=== PATIENT | male | born 1985 | race Caucasian/White ===

== ENCOUNTER 2016-06-22 20:36 | Inpatient (IN) | payer OTHER ==
[2016-06-22 20:57] VITALS: BMI 25.2
--- NOTE | 2016-06-22 21:38 | HP ---
COWS - Scale Resting Pulse: 1= [place] 81-100 Sweatin= Chills/Flushing Restless Observation: 1= Difficult to Sit Still Pupil Size: 0= Normal to Room Light Bone or Joint Aches: 2= Severe Diffuse Aches Runny Nose/ Eye Tearin= Runny Nose/Eyes GI Upset > 30mins: 2= Nausea/Diarrhea Tremor Observation: 2= Slight Tremor Visible Yawning Observation: 0= None Anxiety or Irritability: 2=Irritable/Anxious Goose Flesh Skin: 0=Smooth Skin COWS Score: 13 Admission [facility] Chief Complaint: withdrawal sx Allergies/Adverse Reactions: Allergies Allergy/AdvReac Type Severity Reaction Status Date / Time No Known Allergies Allergy Verified 06/22/16 20:59 History of Present Illness: 31 years old male with long history of opiate nicotine dependence, denies medical denies mental illness, longest sobriety 2 years is admitted to detox Exam Limitations: No Limitations - Ebola screening Have you traveled outside of the country in the last 21 days: No Have you had contact with anyone from an Ebola affected area: No Have you been sick,other than usual withdrawal symptoms: No Do you have a fever: No - Review of Systems Constitutional: Chills, Changes in sleep, Weight Stable EENT: reports: Other (eye blasses) Respiratory: reports: No Symptoms reported Cardiac: reports: Palpitations GI: reports: Diarrhea, Nausea, Poor Fluid Intake, Abdominal cramping : reports: No Symptoms Reported Musculoskeletal: reports: Back Pain, Joint Pain, Muscle Pain, Neck Pain Integumentary: reports: Change in Color (iv opiate) Neuro: reports: Tremors Endocrine: reports: No Symptoms Reported Hematology: reports: No Symptoms Reported Psychiatric: reports: Judgement Intact, Mood/Affect Appropiate, Orientated x3 Other Systems: Reviewed and Negative Patient History - Patient Medical History Hx Anemia: No Hx Asthma: No Hx Chronic Obstructive Pulmonary Disease (COPD): No Hx Cancer: No Hx Cardiac Disorders: No Hx Congestive Heart Failure: No Hx Hypertension: No Hx Hypercholesterolemia: No Hx Pacemaker: No HX Cerebrovascular Accident: No Hx Seizures: No Hx Dementia: No Hx Diabetes: No Hx Gastrointestinal Disorders: No Hx Liver Disease: No Hx Genitourinary Disorders: No Hx Sexually Transmitted Disorders: No Hx Renal Disease (ESRD): No Hx Thyroid Disease: No Hx Human Immunodeficiency Virus (HIV): No (negative) Hx Hepatitis C: No Hx Depression: Yes (trazodon) Hx Suicide Attempt: No Hx Bipolar Disorder: No Hx Schizophrenia: No - Patient Surgical History Past Surgical History: Yes Hx Neurologic Surgery: No Hx Cataract Extraction: No Hx Cardiac Surgery: No Hx Lung Surgery: No Hx Breast Surgery: No Hx Breast Biopsy: No Hx Abdominal Surgery: No Hx Appendectomy: No Hx Cholecystectomy: No Hx Genitourinary Surgery: No Hx Orthopedic Surgery: Yes (left ankle fracture with ORIF including plate and screws) Anesthesia Reaction: No - PPD History Previous Implant?: Yes Documented Results: Negative w/o proof Implanted On Prior [facility] Admission?: Yes Date: 01/23/15 Results: 0 mm PPD to be Administered?: Yes - Smoking Cessation Smoking history: Current every day smoker Have you smoked in the past 12 months: Yes Aproximately how many cigarettes per day: 25 Cigars Per Day: 0 Hx Chewing Tobacco Use: No Initiated information on smoking cessation: Yes 'Breaking Loose' booklet given: 06/22/16 - Substance & Tx. History Hx Alcohol Use: No Hx Substance Use: Yes Substance Use Type: Cocaine, Opiates Hx Substance Use Treatment: Yes - Substances Abused Heroin Route: Injection Frequency: Daily Amount used: 10 bags Age of first use: 29 Date of Last Use: 06/22/16 Cocaine Route: Injection Frequency: Daily Amount used: 1 / 2 gram Age of first use: 19 Date of Last Use: 06/21/16 Family Disease History - Family Disease History Family Disease History: Diabetes: Grandparent, [place]: Grandparent Admission Physical Exam BHS - Vital Signs Vital Signs: Vital Signs - 24 hr 06/22/16 20:51 Temperature 97.5 F L Pulse Rate 93 H Respiratory 18 Rate Blood Pressure 140/83 - Physical General Appearance: Yes: Appropriately Dressed, Mild Distress, Thin, Tremorous, Irritable, Sweating, Anxious HEENTM: Yes: Hearing grossly Normal, Normal ENT Inspection, Normocephalic, Normal Voice Respiratory: Yes: Chest Non-Tender, Lungs Clear, Normal Breath Sounds, No Respiratory Distress, No Accessory Muscle Use Neck: Yes: Supple, Trachea in good position Breast: Yes: Breasts Symetrical Cardiology: Yes: Regular Rhythm, S1, S2, Tachycardia Abdominal: Yes: Non Tender, Soft Genitourinary: Yes: Within Normal Limits Back: Yes: Normal Inspection Musculoskeletal: Yes: full range of Motion, Gait Steady, Muscle Pain Extremities: Yes: Normal Range of Motion, Non-Tender, Tremors Neurological: Yes: Fully Oriented, Alert, Motor Strength 5/5, Normal Response, Depressed Affect Integumentary: Yes: Warm, Moist, Track Carl Lymphatic: Yes: Within Normal Limits - Diagnostic (1) Nicotine dependence Current Visit: Yes Status: Acute Qualifiers: Nicotine product type: cigarettes Substance use status: uncomplicated Qualified Code(s): F17.210 - Nicotine dependence, cigarettes, uncomplicated (2) Depression Current Visit: Yes Status: Suspected Qualifiers: Depression Type: dysthymia Qualified Code(s): F34.1 - Dysthymic disorder (3) Opioid dependence with withdrawal Current Visit: Yes Status: Acute (4) Cocaine dependence, uncomplicated Current Visit: Yes Status: Chronic Cleared for Admission [facility] - Detox or Rehab [facility] Level of Care: Medically Managed Detox Regimen/Protocol: Methadone [facility] Breath Alcohol Content Breath Alcohol Content: 0 Urine Drug Screen - Control Is Test Valid: Yes - Results Drug Screen Negative: No Urine Drug Screen Results: LUCIEN-Cocaine, OPI-Opiates
[2016-06-22] MEDS ORDERED: guaiFENesin/D-METHORPHAN HB 10 ML UNIT-DOSE CUPS PO PRN (21:41)
[2016-06-22] MEDS ORDERED: MAGNESIUM HYDROX 2400MG/30ML ORAL SUSPENSION 30 ML CUP PO PRN (21:41)
[2016-06-22] MEDS ORDERED: METHADONE HCL 10 MG TABLET (FOR DETOX USE ONLY) PO ONE ×2 (21:41→23:00)
[2016-06-22] MEDS ORDERED: MAGNESIUM CITRATE 300 ML BOTTLE PO PRN (21:41)
[2016-06-22] MEDS ORDERED: MAG HYDROX/AL HYDROX/SIMETH 30 ML UNIT-DOSE CUP PO PRN (21:41)
[2016-06-22] MEDS ORDERED: MENTHOL/PHENOL 1 EACH UD MM PRN (21:41)
[2016-06-22] MEDS ORDERED: P-EPHED 60MG/TRIPROLIDI 2.5MG TABLET PO PRN (21:41)
[2016-06-22] MEDS ORDERED: ACETAMINOPHEN 325 MG TABLET (FP) PO PRN (21:41)
[2016-06-22] MEDS ORDERED: LOPERAMIDE HCL 2 MG CAPSULE PO PRN (21:41)
[2016-06-22] MEDS ORDERED: diphenhydrAMINE HCL 50 MG CAPSULE PO PRN (21:41)
[2016-06-22] MEDS ORDERED: BACITRACIN 0.9 GM PACKET TP ONE (21:44)
[2016-06-22] MEDS: diazePAM 5 MG TABLET PO PRN (22:55)
[2016-06-22] MEDS: THIAMINE HCL 100 MG TABLET (FP) PO SCH (22:56)
[2016-06-22] MEDS: GABAPENTIN 300 MG CAPSULE (FP) PO SCH (22:56)
[2016-06-23] MEDS: GABAPENTIN 300 MG CAPSULE (FP) PO SCH ×3 (05:24→22:27)
[2016-06-23] MEDS: diazePAM 5 MG TABLET PO PRN ×4 (05:59→19:49)
--- NOTE | 2016-06-23 08:10 | CONSULT ---
[facility] Psychiatric Consult - Data Date of interview: 06/23/16 Admission source: [facility] Identifying data: This is 31 years old male with no psychiatric hospitalization history intoxicated with : Heroin and Nicotine,Cocane Substance Abuse History: - Smoking Cessation. Smoking history: Current every day smoker. Have you smoked in the past 12 months: Yes. Aproximately how many cigarettes per day: 25. Cigars Per Day: 0. Hx Chewing Tobacco Use: No. Initiated information on smoking cessation: Yes. 'Breaking Loose' booklet given : 06/22/16. - Substance & Tx. History. Hx Alcohol Use: No. Hx Substance Use: Yes. Substance Use Type: Cocaine, Opiates. Hx Substance Use Treatment: Yes. - Substances Abused. Heroin. Route: Injection. Frequency: Daily. Amount used: 10 bags. Age of first use: 29. Date of Last Use: 06/22/16. Cocaine. Route: Injection. Frequency: Daily. Amount used: 1 / 2 gram. Age of first use: 19. Date of Last Use: 06/21/16 Medical History: HepC+, HTN, Psychiatric History: Patient reports history of depression, reports taking prior to admission:". Gabapentin 300mg po tid. Trazodone 50mg po qhs. Patient asking not to send pharmacologocal orders, he has his medications at home Physical/Sexual Abuse/Trauma History: Denies Additional Comment: Urine Drug Screen Results: LUCIEN-Cocaine, OPI-Opiates. Gabapentin 300mg po tid. Trazodone 50mg po qhs. Patient asking not to send pharmacologocal orders, he has his medications at home Mental Status Exam - Mental Status Exam Alert and Oriented to: Time, Place, Person Cognitive Function: Fair Patient Appearance: Well Groomed Mood: Anxious Affect: Appropriate Patient Behavior: Talkative Speech Pattern: Excessive Voice Loudness: Mildly Loud Thought Process: Goal Oriented Thought Disorder: Being Controlled Hallucinations: Denies Suicidal Ideation: Denies Homicidal Ideation: Denies Insight/Judgement: Fair Sleep: Difficulty falling asleep Appetite: Fair Muscle strength/Tone: Normal Gait/Station: Normal Additional Comments: Gabapentin 300mg po tid. Trazodone 50mg po qhs. Patient asking not to send pharmacologocal orders, he has his medications at home Psychiatric Findings - Problem List ([place] 1, 2,3) (1) Nicotine dependence Current Visit: Yes Status: Acute Qualifiers: Nicotine product type: cigarettes Substance use status: uncomplicated Qualified Code(s): F17.210 - Nicotine dependence, cigarettes, uncomplicated (2) Opioid dependence with withdrawal Current Visit: Yes Status: Acute (3) Cocaine dependence, uncomplicated Current Visit: Yes Status: Chronic (4) Benzodiazepine dependence Current Visit: No Status: Acute (5) Drug-induced mood disorder Current Visit: No Status: Acute (6) Opioid dependence Current Visit: No Status: Acute (7) Mood disorder Current Visit: No Status: Chronic - Initial Treatment Plan Initial Treatment Plan: Gabapentin 300mg po tid. Trazodone 50mg po qhs. Patient asking not to send pharmacologocal orders, he has his medications at home
[2016-06-23] MEDS ORDERED: METHADONE HCL 10 MG TABLET (FOR DETOX USE ONLY) PO ONE (10:00)
[2016-06-23 10:12] LABS: ALBUMIN 3.7 g/dl (3.4-5.0); ANION GAP 5 (8-16); BILIRUBIN,TOTAL 0.4 mg/dL (0.2-1.0); CALCIUM 8.7 mg/dL (8.5-10.1); CO2 32 mmol/L (21-32); GLUCOSE,RANDOM 105 mg/dL (74-106); SGOT/AST 18 U/L (15-37); SGPT/ALT 26 U/L (12-78); TOT PROT 6.5 g/dl (6.4-8.2)
[2016-06-23 10:13] LABS: ALK PHOS 90 U/L (45-117); CREATININE 1.1 mg/dL (0.7-1.3)
--- NOTE | 2016-06-23 10:25 | PN ---
BHS COWS - Scale Resting Pulse: 0= [place] 80 or Below Sweatin=Flushed/Facial Moisture Restless Observation: 1= Difficult to Sit Still Pupil Size: 0= Normal to Room Light Bone or Joint Aches: 2= Severe Diffuse Aches Runny Nose/ Eye Tearin= Runny Nose/Eyes GI Upset > 30mins: 1= Stomach Cramp Tremor Observation of Outstretched Hands: 2= Slight Tremor Visible Yawning Observation: 2= >3x During Session Anxiety or Irritability: 1=Feels Anxious/Irritable Goose Flesh Skin: 0=Smooth Skin COWS Score: 13 BHS Progress Note (SOAP) Subjective: irritable sweats shakes interrupted sleep agitation anxiety Objective: 06/23/16 10:24 Vital Signs Temperature 97.2 F L 06/23/16 10:00 Pulse Rate 65 06/23/16 10:00 Respiratory Rate 18 06/23/16 10:00 Blood Pressure 127/65 06/23/16 10:00 O2 Sat by Pulse Oximetry (%) Laboratory Tests 06/23/16 07:00 Sodium 142 Potassium 4.1 Chloride 105 Carbon Dioxide 32 Anion Gap 5 L BUN 15 D Creatinine 1.1 D Creat Clearance w eGFR > 60 Random Glucose 105 Calcium 8.7 Total Bilirubin 0.4 D AST 18 ALT 26 Alkaline Phosphatase 90 D Total Protein 6.5 Albumin 3.7 labs pending awake/alert ambulating no acute distress Assessment: 06/23/16 10:24 withdrawal sx Plan: continue detox increase fluids labs pending
[2016-06-23 10:28] LABS: MCHC 34.1 g/dl (32.0-35.9); MEAN CELL VOLUME 84.9 fl (80-96); MEAN PLT VOLUME 7.5 fl (7.5-11.1); PLATELET COUNT 231 K/MM3 (134-434); RDW 13.6 % (11.9-15.9); WHITE BLOOD COUNT 7.2 K/mm3 (4.0-10.0)
[2016-06-23] MEDS: PRENATAL VITAMINS W/ FOLIC ACID TABLET (FP) PO SCH (10:31)
[2016-06-23] MEDS: NICOTINE 21 MG/24 HOURS TOPICAL PATCH TD SCH (10:32)
[2016-06-23] MEDS: IBUPROFEN 400 MG TABLET (FP) PO PRN ×2 (10:33→18:12)
[2016-06-23] MEDS: NICOTINE POLACRILEX 2 MG GUM BUC PRN ×2 (12:58→18:12)
[2016-06-23 15:48] LABS: URINE APPEARANCE CLEAR; URINE BILIRUBIN NEGATIVE (NEGATIVE); URINE BLOOD NEGATIVE (NEGATIVE); URINE COLOR YELLOW; URINE GLUCOSE (UA) NEGATIVE (NEGATIVE); URINE KETONE NEGATIVE (NEGATIVE); URINE LEUK ESTERASE NEGATIVE (NEGATIVE); URINE NITRITE NEGATIVE (NEGATIVE); URINE PROTEIN NEGATIVE (NEGATIVE); URINE UROBILINOGEN NEGATIVE E.U./dl (0.2-1.0)
--- NOTE | 2016-06-23 17:13 | EKG ---
Test Reason : Blood Pressure : / mmHG Vent. Rate : 072 BPM Atrial Rate : 072 BPM P-R Int : 162 ms QRS Dur : 086 ms QT Int : 390 ms P-R-T Axes : 065 080 053 degrees QTc Int : 427 ms NORMAL SINUS RHYTHM NORMAL ECG NO PREVIOUS ECGS AVAILABLE Confirmed by PEGGY HOLLIDAY, JOSH ([id number]) on 06/23/2016 5:12:49 PM Referred By: Alex Duggan Confirmed By:JOSH WOODS MD
[2016-06-23] MEDS: THIAMINE HCL 100 MG TABLET (FP) PO SCH (22:30)
[2016-06-24] MEDS: diazePAM 5 MG TABLET PO PRN ×3 (05:22→19:56)
[2016-06-24] MEDS: GABAPENTIN 300 MG CAPSULE (FP) PO SCH ×3 (05:23→22:45)
[2016-06-24] MEDS ORDERED: METHADONE HCL 5 MG TABLET (FOR DETOX USE ONLY) PO ONE (10:00)
[2016-06-24] MEDS: PRENATAL VITAMINS W/ FOLIC ACID TABLET (FP) PO SCH (10:21)
[2016-06-24] MEDS: NICOTINE 21 MG/24 HOURS TOPICAL PATCH TD SCH (10:22)
[2016-06-24] MEDS: IBUPROFEN 400 MG TABLET (FP) PO PRN (10:26)
[2016-06-24] MEDS: NICOTINE POLACRILEX 2 MG GUM BUC PRN ×2 (10:26→19:56)
--- NOTE | 2016-06-24 10:27 | PN ---
BHS COWS - Scale Resting Pulse: 0= [place] 80 or Below Sweatin=Flushed/Facial Moisture Restless Observation: 1= Difficult to Sit Still Pupil Size: 0= Normal to Room Light Bone or Joint Aches: 2= Severe Diffuse Aches Runny Nose/ Eye Tearin= Nasal Congestion GI Upset > 30mins: 0= None Tremor Observation of Outstretched Hands: 1= Tremor [place], Not Seen Yawning Observation: 2= >3x During Session Anxiety or Irritability: 2=Irritable/Anxious Goose Flesh Skin: 0=Smooth Skin COWS Score: 11 BHS Progress Note (SOAP) Subjective: irritable agitation anxiety sweats shakes Objective: 06/24/16 10:26 Vital Signs Temperature 97.2 F L 06/24/16 09:58 Pulse Rate 60 06/24/16 09:58 Respiratory Rate 18 06/24/16 09:58 Blood Pressure 154/84 06/24/16 09:58 O2 Sat by Pulse Oximetry (%) Laboratory Tests 06/23/16 06/23/16 06/23/16 07:00 07:00 07:00 WBC 7.2 RBC 4.56 Hgb 13.2 Hct 38.7 MCV 84.9 MCHC 34.1 RDW 13.6 Plt Count 231 MPV 7.5 Sodium 142 Potassium 4.1 Chloride 105 Carbon Dioxide 32 Anion Gap 5 L BUN 15 D Creatinine 1.1 D Creat Clearance w eGFR > 60 Random Glucose 105 Calcium 8.7 Total Bilirubin 0.4 D AST 18 ALT 26 Alkaline Phosphatase 90 D Total Protein 6.5 Albumin 3.7 Urine Color Urine Appearance Urine pH Ur Specific Ruth Urine Protein Urine Glucose (UA) Urine Ketones Urine Blood Urine Nitrite Urine Bilirubin Urine Urobilinogen Ur Leukocyte Esterase RPR Titer Nonreactive Hepatitis C Antibody 06/23/16 06/23/16 07:00 11:15 WBC RBC Hgb Hct MCV MCHC RDW Plt Count MPV Sodium Potassium Chloride Carbon Dioxide Anion Gap BUN Creatinine Creat Clearance w eGFR Random Glucose Calcium Total Bilirubin AST ALT Alkaline Phosphatase Total Protein Albumin Urine Color Yellow Urine Appearance Clear Urine pH 5.0 D Ur Specific Ruth 1.027 Urine Protein Negative Urine Glucose (UA) Negative Urine Ketones Negative Urine Blood Negative Urine Nitrite Negative Urine Bilirubin Negative Urine Urobilinogen Negative Ur Leukocyte Esterase Negative RPR Titer Hepatitis C Antibody <0.1 awake/alert ambulating no acute distress Assessment: 06/24/16 10:26 withdrawal sx Plan: continue detox increase fluids
[2016-06-24 21:51] VITALS: BP 108/77; PULSE 75; TEMP 98.2
[2016-06-24] MEDS: THIAMINE HCL 100 MG TABLET (FP) PO SCH (22:45)
--- NOTE | 2016-06-24 23:35 | DS ---
[facility] Detox Discharge Summary Admission Date: 06/22/16 Discharge Date: 06/24/16 - History Present History: Cocaine Dependence, Opioid Dependence Additional Comments: 31 years old male admitted for opiate detox, repeatedly smoking cigarettes on the unit, regardless the role and regulation of the facility, as well as nicotine replacement therapy, patient continue smoking cigarettes for the safety of the facility patient has to facilitate community self help resources for the benefits of sobriety. Pertinent Past History: nicotine dependence - Physical Exam Results Vital Signs: Vital Signs Temperature 98.2 F 06/24/16 21:51 Pulse Rate 75 06/24/16 21:51 Respiratory Rate 18 06/24/16 21:51 Blood Pressure 108/77 06/24/16 21:51 O2 Sat by Pulse Oximetry (%) Pertinent Admission Physical Exam Findings: withdrawal sx Laboratory Last Values WBC 7.2 K/mm3 (4.0-10.0) 06/23/16 07:00 RBC 4.56 M/mm3 (4.00-5.60) 06/23/16 07:00 Hgb 13.2 GM/dL (11.7-16.9) 06/23/16 07:00 Hct 38.7 % (35.4-49) 06/23/16 07:00 MCV 84.9 fl (80-96) 06/23/16 07:00 MCHC 34.1 g/dl (32.0-35.9) 06/23/16 07:00 RDW 13.6 % (11.9-15.9) 06/23/16 07:00 Plt Count 231 K/MM3 (134-434) 06/23/16 07:00 MPV 7.5 fl (7.5-11.1) 06/23/16 07:00 Sodium 142 mmol/L (136-145) 06/23/16 07:00 Potassium 4.1 mmol/L (3.5-5.1) 06/23/16 07:00 Chloride 105 mmol/L (98-107) 06/23/16 07:00 Carbon Dioxide 32 mmol/L (21-32) 06/23/16 07:00 Anion Gap 5 (8-16) L 06/23/16 07:00 BUN 15 mg/dL (7-18) D 06/23/16 07:00 Creatinine 1.1 mg/dL (0.7-1.3) D 06/23/16 07:00 Creat Clearance w eGFR > 60 (>60) 06/23/16 07:00 Random Glucose 105 mg/dL (74-106) 06/23/16 07:00 Calcium 8.7 mg/dL (8.5-10.1) 06/23/16 07:00 Total Bilirubin 0.4 mg/dL (0.2-1.0) D 06/23/16 07:00 AST 18 U/L (15-37) 06/23/16 07:00 ALT 26 U/L (12-78) 06/23/16 07:00 Alkaline Phosphatase 90 U/L (45-117) D 06/23/16 07:00 Total Protein 6.5 g/dl (6.4-8.2) 06/23/16 07:00 Albumin 3.7 g/dl (3.4-5.0) 06/23/16 07:00 Urine Color Yellow 06/23/16 11:15 Urine Appearance Clear 06/23/16 11:15 Urine pH 5.0 (5.0-8.0) D 06/23/16 11:15 Ur Specific [place] 1.027 (1.001-1.035) 06/23/16 11:15 Urine Protein Negative (NEGATIVE) 06/23/16 11:15 Urine Glucose (UA) Negative (NEGATIVE) 06/23/16 11:15 Urine Ketones Negative (NEGATIVE) 06/23/16 11:15 Urine Blood Negative (NEGATIVE) 06/23/16 11:15 Urine Nitrite Negative (NEGATIVE) 06/23/16 11:15 Urine Bilirubin Negative (NEGATIVE) 06/23/16 11:15 Urine Urobilinogen Negative E.U./dl (0.2-1.0) 06/23/16 11:15 Ur Leukocyte Esterase Negative (NEGATIVE) 06/23/16 11:15 RPR Titer Nonreactive (NONREACTIVE) 06/23/16 07:00 Hepatitis C Antibody <0.1 s/co ratio (0.0-0.9) 06/23/16 07:00 lab noted - Treatment Hospital Course: Detox Protocol Followed, Responded well - Medication Discharge Medications: Ambulatory Orders Trazodone HCl [Desyrel -] 50 mg PO HS #30 tablet 01/22/15 Buprenorphine/Naloxone [Suboxone 8Mg/2Mg Sl Film -] 1 film SL TID 06/22/16 Gabapentin [Neurontin -] 300 mg PO Q8H 06/22/16 - Diagnosis (1) Nicotine dependence Current Visit: Yes Status: Acute Qualifiers: Nicotine product type: cigarettes Substance use status: uncomplicated Qualified Code(s): F17.210 - Nicotine dependence, cigarettes, uncomplicated (2) Depression Current Visit: Yes Status: Suspected Qualifiers: Depression Type: dysthymia Qualified Code(s): F34.1 - Dysthymic disorder (3) Opioid dependence with withdrawal Current Visit: Yes Status: Acute (4) Cocaine dependence, uncomplicated Current Visit: Yes Status: Chronic - AMA Did Patient Leave Against Medical Advice: No
[2016-06-25] MEDS ORDERED: METHADONE HCL 5 MG TABLET (FOR DETOX USE ONLY) PO ONE (10:00)
[2016-06-26] MEDS ORDERED: METHADONE HCL 5 MG TABLET (FOR DETOX USE ONLY) PO ONE (06:00)
[2016-06-26] MEDS ORDERED: METHADONE HCL 10 MG TABLET (FOR DETOX USE ONLY) PO ONE (10:00)
[2016-06-27] MEDS ORDERED: METHADONE HCL 5 MG TABLET (FOR DETOX USE ONLY) PO ONE (06:00)
== END 2016-06-24 23:30 | disposition home or self-care (01) | DRG 773 ==
LOC: YASAS 20:36 → Y6N 21:43
PROVIDERS: ADMIT Internal Medicine Addiction Medicine; ATTEND Internal Medicine Addiction Medicine
PROC: HZ2ZZZZ Detoxification Services for Substance Abuse Treatment (ICD-10-PCS; principal; 2016-06-22)
DX: F11.23 Opioid dependence with withdrawal (principal); F14.20 Cocaine dependence, uncomplicated; F17.210 Nicotine dependence, cigarettes, uncomplicated; F39 Unspecified mood [affective] disorder; F34.1 Dysthymic disorder; F19.24 Other psychoactive substance dependence with psychoactive substance-induced mood disorder; I10 Essential (primary) hypertension; B18.2 Chronic viral hepatitis C; R00.0 Tachycardia, unspecified
CPT/HCPCS: 36415; 80053; 81003; 85027; 86593; 86803; 93005; 93010

== ENCOUNTER 2018-02-01 14:59 | Inpatient (IN) | payer OTHER ==
[2018-02-01 17:48] VITALS: BMI 21.8
--- NOTE | 2018-02-01 21:51 | HP ---
COWS - Scale Resting Pulse: 1= [place] 81-100 Sweatin=Flushed/Facial Moisture Restless Observation: 5= Unable to Sit Still Pupil Size: 1= Pupils >than Normal Bone or Joint Aches: 4=Acute Joint/Muscle Pain Runny Nose/ Eye Tearin= Runny Nose/Eyes GI Upset > 30mins: 2= Nausea/Diarrhea Tremor Observation: 2= Slight Tremor Visible Yawning Observation: 0= None Anxiety or Irritability: 4=Extreme Anxiety Goose Flesh Skin: 0=Smooth Skin COWS Score: 23 CIWA Score - CIWA Score Nausea/Vomitin Muscle Tremors: 3 Anxiety: 4-Mod. Anxious/Guarded Agitation: 4-Moderately Restless Paroxysmal Sweats: 3 Orientation: 0-Oriented Tacttile Disturbances: 3-Moderate Itch/Numb/Burn Auditory Disturbances: 0-None Visual Disturbances: 0-None Headache: 3-Moderate CIWA-Ar Total Score: 23 Admission ROS BHS - HPI Chief Complaint: SEEKING DETOX FOR HEROIN/ALCOHOL/ AND BENZO DEPENDENCE WITH C/O WITHDRAWAL SX'S Allergies/Adverse Reactions: Allergies Allergy/AdvReac Type Severity Reaction Status Date / Time No Known Allergies Allergy Verified 02/01/18 19:45 History of Present Illness: 32 Y.O. MALE WITH HX/O, BENZO AND HEROIN DEPENDENCE ADMITTED TO DETOX. CLIENT IS PRESENTLY RECEIVING SBX MGMT. LAST RX FILLED ON 01/29/2018 NOTED ON THE TOP LIFT TRIMMER. CLIENT REPORTS RELAPSING 5 DAYS AGO ON HEROIN AND HAS NOT USED HIS SBX RX SINCE THEN. WILL ADMIT BASED ON BENZO DEPENDENCE. UTOX + FOR OPI,MTD, BZO, THC. HE IS KNOWN TO THIS PROGRAM , LAST HERE OVER A YEAR AGO WHERE HE WAS ADMINISTRATIVELY DC FOR NON COMPLIANCE OF PROGRAM RULES. D/W CLIENT ABOUT IMPORTANCE OF FOLLOWING PROGRAM RULES/REGS WHICH HE AGREES TOO. SELF REFERRED. LONGEST CLEAN TIME 6 MONTHS WHILE INCARCERATED. DENIES HX/O DRUG OVERDOSE, SEIZURES, . REPORT PAST HX/O AVH WHEN WITHDRAWING FROM BENZO . CLIENT ALSO SIGNED CONSENT FOR US TO SPEAK WITH HIS SBX PRESCRIBER DR. 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 PSYCH: ANXIETY, ADHD, Exam Limitations: Other (ANXIETY) - Ebola screening Have you traveled outside of the country in the last 21 days: No Have you had contact with anyone from an Ebola affected area: No Have you been sick,other than usual withdrawal symptoms: No Do you have a fever: No - Review of Systems Constitutional: Chills, Malaise, Night Sweats, Changes in sleep EENT: reports: Nose Congestion, Dental Problems (MISSING TEETH), Other (WATERY EYES) Respiratory: reports: No Symptoms reported Cardiac: reports: No Symptoms Reported GI: reports: Diarrhea, Nausea, Abdominal cramping : reports: Other (HESITANCY) Musculoskeletal: reports: Joint Pain, Other Integumentary: reports: No Symptoms Reported Neuro: reports: No Symptoms reported Endocrine: reports: No Symptoms Reported Hematology: reports: No Symptoms Reported Psychiatric: reports: Anxious, Depressed Other Systems: Reviewed and Negative Patient History - Patient Medical History Hx Anemia: No Hx Asthma: No Hx Chronic Obstructive Pulmonary Disease (COPD): No Hx Cancer: No Hx Cardiac Disorders: No Hx Congestive Heart Failure: No Hx Hypertension: No Hx Hypercholesterolemia: No Hx Pacemaker: No HX Cerebrovascular Accident: No Hx Seizures: No Hx Dementia: No Hx Diabetes: No Hx Gastrointestinal Disorders: No Hx Liver Disease: No Hx Genitourinary Disorders: No Hx Sexually Transmitted Disorders: No Hx Renal Disease (ESRD): No Hx Thyroid Disease: No Hx Human Immunodeficiency Virus (HIV): No Hx Hepatitis C: No Hx Depression: Yes (MOOD D/O) Hx Suicide Attempt: No Hx Bipolar Disorder: No Hx Schizophrenia: No Other Medical History: ANXIETY, ADHD - Patient Surgical History Past Surgical History: Yes Hx Neurologic Surgery: No Hx Cataract Extraction: No Hx Cardiac Surgery: No Hx Lung Surgery: No Hx Breast Surgery: No Hx Breast Biopsy: No Hx Abdominal Surgery: No Hx Appendectomy: No Hx Cholecystectomy: No Hx Genitourinary Surgery: No Hx Section: No Hx Orthopedic Surgery: Yes (left ankle fracture with ORIF including plate and screws) Anesthesia Reaction: No - PPD History Previous Implant?: Yes Documented Results: Negative w/proof Implanted On Prior R Admission?: Yes Date: 06/24/16 Results: 0 mm PPD to be Administered?: Yes - Smoking Cessation Smoking history: Current every day smoker Have you smoked in the past 12 months: Yes Aproximately how many cigarettes per day: 20 Cigars Per Day: 0 Hx Chewing Tobacco Use: No Initiated information on smoking cessation: Yes 'Breaking Loose' booklet given: 02/01/18 - Substance & Tx. History Hx Alcohol Use: Yes ([place]) Hx Substance Use: Yes Substance Use Type: Heroin, Marijuana, Tranquilizers (XANAX) Hx Substance Use Treatment: Yes ([facility]) - Substances Abused Heroin Route: Injection Frequency: Daily Amount used: 3 bundles Age of first use: 30 Date of Last Use: 01/31/18 Alprazolam (Xanax) Route: Oral Frequency: Daily Amount used: 10 mg daily Age of first use: 20 Date of Last Use: 01/31/18 Alcohol Route: Oral Frequency: 1-2 times per week Amount used: 1 PINT Age of first use: 13 Date of Last Use: 01/30/18 Family Disease History - Family Disease History Family Disease History: Diabetes: Grandparent, [place]: Grandparent Admission Physical Exam [facility] - Vital Signs Vital Signs: Vital Signs - 24 hr 02/01/18 17:46 Temperature 96.7 F L Pulse Rate 84 Respiratory 18 Rate Blood Pressure 128/85 - Physical General Appearance: Yes: Moderate Distress, Tremorous (FELT), Sweating, Anxious , Other (TALKATIVE) HEENTM: Yes: EOMI, Normocephalic, Normal Voice, TERENCE, Pharynx Normal, Nasal Congestion, Rhinorrhea Respiratory: Yes: Chest Non-Tender, Lungs Clear, No Respiratory Distress, No Accessory Muscle Use Neck: Yes: No masses,lesions,Nodules, Supple, Trachea in good position Breast: Yes: Breast Exam Deferred Cardiology: Yes: Regular Rhythm, Regular Rate, S1, S2 Abdominal: Yes: Normal Bowel Sounds, Non Tender, Flat, Soft Genitourinary: Yes: Within Normal Limits Back: Yes: Normal Inspection Musculoskeletal: Yes: full range of Motion, Gait Steady Extremities: Yes: Normal Range of Motion, Non-Tender, Tremors (FELT) Neurological: Yes: Alert, Motor Strength 5/5, Depressed Affect Integumentary: Yes: Warm, Moist, Track Carl (ACUTE) Lymphatic: Yes: Within Normal Limits - Diagnostic (1) Sedative, hypnotic or anxiolytic dependence with withdrawal, uncomplicated Current Visit: Yes Status: Acute (2) Alcohol abuse Current Visit: Yes Status: Acute (3) Neuropathy Current Visit: Yes Status: Chronic (4) Drug-induced mood disorder Current Visit: Yes Status: Chronic (5) Nicotine dependence Current Visit: Yes Status: Chronic Qualifiers: Nicotine product type: cigarettes Substance use status: uncomplicated Qualified Code(s): F17.210 - Nicotine dependence, cigarettes, uncomplicated (6) Opioid dependence with withdrawal Current Visit: Yes Status: Acute (7) Mood disorder Current Visit: Yes Status: Chronic (8) Depression Current Visit: Yes Status: Suspected Qualifiers: Depression Type: dysthymia Qualified Code(s): F34.1 - Dysthymic disorder Cleared for Admission [facility] - Detox or Rehab [facility] Level of Care: Medically Managed Detox Regimen/Protocol: Methadone/Valium Claeared for Rehab Admission: No BHS Breath Alcohol Content Breath Alcohol Content: 0 Urine Drug Screen - Results Drug Screen Negative: No Urine Drug Screen Results: THC-Marijuana, OPI-Opiates, BZO-Benzodiazepines, MTD- Methadone, OXY-Oxycodone
[2018-02-01] MEDS ORDERED: MENTHOL/PHENOL 1 EACH UD MM PRN (22:09)
[2018-02-01] MEDS ORDERED: MAG HYDROX/AL HYDROX/SIMETH 30 ML UNIT-DOSE CUP PO PRN (22:09)
[2018-02-01] MEDS ORDERED: MAGNESIUM CITRATE 300 ML BOTTLE PO PRN (22:09)
[2018-02-01] MEDS ORDERED: NICOTINE POLACRILEX 2 MG GUM BC PRN (22:09)
[2018-02-01] MEDS ORDERED: guaiFENesin/D-METHORPHAN HB 10 ML UNIT-DOSE CUPS PO PRN (22:09)
[2018-02-01] MEDS ORDERED: MAGNESIUM HYDROX 2400MG/30ML ORAL SUSPENSION 30 ML CUP PO PRN (22:09)
[2018-02-01] MEDS ORDERED: diazePAM 5 MG TABLET PO ONE (22:30)
[2018-02-01] MEDS ORDERED: METHADONE HCL 10 MG TABLET (FOR DETOX USE ONLY) PO ONE ×2 (22:30→23:00)
[2018-02-01] MEDS: diazePAM 5 MG TABLET PO SCH (22:54)
[2018-02-01] MEDS: GABAPENTIN 300 MG CAPSULE (FP) PO SCH (22:58)
[2018-02-02 02:01] LABS: URINE APPEARANCE CLOUDY; URINE BILIRUBIN NEGATIVE (<2.0 mg/dL); URINE COLOR YELLOW; URINE GLUCOSE (UA) NEGATIVE (NEGATIVE); URINE KETONE NEGATIVE (NEGATIVE); URINE LEUK ESTERASE NEGATIVE (NEGATIVE); URINE NITRITE NEGATIVE (NEGATIVE); URINE UROBILINOGEN NEGATIVE mg/dL (0.2-1.0)
[2018-02-02 02:29] LABS: URINE PROTEIN 1+ (NEGATIVE)
[2018-02-02 02:33] LABS: CALCIUM OXALATE CRYSTALS MODERATE /hpf (NONE SEEN); EPI CELLS RARE /HPF (FEW); GRANULAR CASTS 7 /lpf; URINE BACTERIA RARE /hpf (NONE SEEN); URINE HYALINE CAST 7 /lpf; URINE MUCUS FEW
[2018-02-02] MEDS: GABAPENTIN 300 MG CAPSULE (FP) PO SCH ×3 (05:25→22:12)
[2018-02-02] MEDS: diazePAM 5 MG TABLET PO SCH ×3 (05:25→22:12)
[2018-02-02] MEDS ORDERED: METHADONE HCL 10 MG TABLET (FOR DETOX USE ONLY) PO SCH (10:00)
--- NOTE | 2018-02-02 10:28 | EKG ---
Test Reason : Blood Pressure : / mmHG Vent. Rate : 074 BPM Atrial Rate : 074 BPM P-R Int : 144 ms QRS Dur : 084 ms QT Int : 382 ms P-R-T Axes : 028 082 065 degrees QTc Int : 424 ms NORMAL SINUS RHYTHM NORMAL ECG WHEN COMPARED WITH ECG OF 22-JUN-2016 22:22, NO SIGNIFICANT CHANGE WAS FOUND Confirmed by DIAZ MEHTA MD ([id number]) on 02/02/2018 10:28:02 AM Referred By: Confirmed By:DIAZ MEHTA MD
[2018-02-02] MEDS: diazePAM 5 MG TABLET PO PRN ×2 (10:37→17:29)
[2018-02-02] MEDS: PRENATAL VITAMINS W/ FOLIC ACID TABLET (FP) PO SCH (10:37)
[2018-02-02] MEDS: NICOTINE 21 MG/24 HOURS TOPICAL PATCH TD SCH (10:37)
[2018-02-02] MEDS: ACETAMINOPHEN 325 MG TABLET (FP) PO PRN (10:39)
--- NOTE | 2018-02-02 10:52 | CONSULT ---
[facility] Psychiatric Consult - Data Date of interview: 02/02/18 Admission source: [facility] Identifying data: Readmission to [facility] for this 32 y/o male seeking detox treatment on for xanax,cannabis,alcohol and opioid dependence.Patient is ,a father of one,domiciled,unemployed and supported on odd jobs. Substance Abuse History: Discussed in this session.patient confirmed the following : Smoking history: Current every day smoker. Have you smoked in the past 12 months: Yes. Aproximately how many cigarettes per day: 20. Cigars Per Day: 0. Hx Chewing Tobacco Use: No. Initiated information on smoking cessation : Yes. 'Breaking Loose' booklet given: 02/01/18. - Substance & Tx. History. Hx Alcohol Use: Yes ([facility]). Hx Substance Use: Yes. Substance Use Type: Heroin, Marijuana, Tranquilizers (XANAX). Hx Substance Use Treatment: Yes ([facility] ). - Substances Abused. Heroin. Route: Injection. Frequency: Daily. Amount used: 3 bundles. Age of first use: 30. Date of Last Use: 01/31/18. Alprazolam (Xanax). Route: Oral. Frequency: Daily. Amount used: 10 mg daily. Age of first use: 20. Date of Last Use: 01/31/18. Alcohol. Route: Oral. Frequency: 1-2 times per week. Amount used: 1 PINT. Age of first use: 13. Date of Last Use: 01/30/18 Medical History: Arthritis,hepatitis C,hypertension and a history of orthosurgery for fracture of left ankle (ORIF procedure / hardware in situ). Psychiatric History: No reported history of psychiatric hospitalizations.Patient endorses Anxiety Disorder and ADHD as his diagnoses.Mr Camejo states that he sees a psychiatrist at an [facility] program located in [facility].Prescribed trazodone and gabapentin.Used to be on suboxone maintenance.Patient denies history of suicide attempts. Physical/Sexual Abuse/Trauma History: Patient denies. Additional Comment: Urine Drug Screen Results: THC-Marijuana, OPI-Opiates, BZO- Benzodiazepines, MTD-Methadone, OXY-Oxycodone.Noted. Mental Status Exam - Mental Status Exam Alert and Oriented to: Time, Place, Person Cognitive Function: Good Patient Appearance: Disheveled Mood: Nervous, Anxious Affect: Mood Congruent Patient Behavior: Fatigued, Cooperative Speech Pattern: Clear Voice Loudness: Normal Thought Process: Intact, Goal Oriented Thought Disorder: Not Present Hallucinations: Denies Suicidal Ideation: Denies Homicidal Ideation: Denies Insight/Judgement: Poor Sleep: Poorly, Difficulty falling asleep Appetite: Good Muscle strength/Tone: Normal Gait/Station: Other (walks with a limp) Psychiatric Findings - Problem List ([place] 1, 2,3) (1) Opioid dependence with withdrawal Current Visit: Yes Status: Acute (2) Sedative, hypnotic or anxiolytic dependence with withdrawal, uncomplicated Current Visit: Yes Status: Acute (3) Cannabis dependence Current Visit: Yes Status: Acute (4) Alcohol abuse Current Visit: Yes Status: Acute (5) Nicotine dependence Current Visit: Yes Status: Acute Qualifiers: Nicotine product type: cigarettes Substance use status: uncomplicated Qualified Code(s): F17.210 - Nicotine dependence, cigarettes, uncomplicated (6) Drug-induced mood disorder Current Visit: Yes Status: Acute (7) Insomnia Current Visit: Yes Status: Acute - Initial Treatment Plan Initial Treatment Plan: Psychoeducation.Sleep hygiene.Detoxification in progress.Medications : trazodone 50 mg po hs.Patient is made aware of the risk of parasomnias.Agrees to this careplan.Observation.
[2018-02-02 11:00] LABS: HEMATOCRIT 40.2 % (35.4-49); HEMOGLOBIN 13.4 GM/dL (11.7-16.9); MCH 27.3 pg (25.7-33.7); MCHC 33.3 g/dl (32.0-35.9); MEAN PLT VOLUME 7.4 fl (7.5-11.1); PLATELET COUNT 206 K/MM3 (134-434); RBC 4.91 M/mm3 (4.00-5.60); RDW 13.6 % (11.9-15.9); WHITE BLOOD COUNT 5.9 K/mm3 (4.0-10.0)
[2018-02-02 11:08] LABS: ALBUMIN 3.6 g/dl (3.4-5.0); ANION GAP 5 MMOL/L (8-16); BLOOD UREA NITROGEN 13 mg/dL (7-18); CALCIUM 8.4 mg/dL (8.5-10.1); CHLORIDE 103 mmol/L (98-107); CO2 34 mmol/L (21-32); GLUCOSE,RANDOM 93 mg/dL (74-106); POTASSIUM 3.8 mmol/L (3.5-5.1); SODIUM 142 mmol/L (136-145)
[2018-02-02 11:14] LABS: ALK PHOS 105 U/L (45-117); BILIRUBIN,TOTAL 0.3 mg/dL (0.2-1.0); CREATININE 0.9 mg/dL (0.7-1.3); SGOT/AST 13 U/L (15-37); SGPT/ALT 19 U/L (12-78)
--- NOTE | 2018-02-02 13:22 | CONSULT ---
[facility] Psychiatric Consult - Data Date of interview: 02/02/18 Admission source: [facility]
[2018-02-02] MEDS: IBUPROFEN 400 MG TABLET (FP) PO PRN (17:31)
[2018-02-02] MEDS: THIAMINE HCL 100 MG TABLET (FP) PO SCH (22:12)
[2018-02-02] MEDS: traZODone HCL 50 MG TABLET (FP) PO SCH (22:12)
[2018-02-03] MEDS: diazePAM 5 MG TABLET PO PRN ×4 (03:37→20:58)
[2018-02-03] MEDS: GABAPENTIN 300 MG CAPSULE (FP) PO SCH ×3 (08:40→22:33)
[2018-02-03] MEDS: METHADONE HCL 5 MG TABLET (FOR DETOX USE ONLY) PO SCH (10:29)
[2018-02-03] MEDS: PRENATAL VITAMINS W/ FOLIC ACID TABLET (FP) PO SCH (10:29)
[2018-02-03] MEDS: NICOTINE 21 MG/24 HOURS TOPICAL PATCH TD SCH (10:30)
[2018-02-03] MEDS: ACETAMINOPHEN 325 MG TABLET (FP) PO PRN ×2 (10:30→16:48)
[2018-02-03] MEDS: diazePAM 5 MG TABLET PO SCH ×2 (10:30→22:33)
--- NOTE | 2018-02-03 11:06 | PN ---
[facility] CIWA - CIWA Score Nausea/Vomitin-Mild Nausea/No Vomiting Muscle Tremors: 2 Anxiety: 1-Mildly Anxious Agitation: 1-Slight > Activity Paroxysmal Sweats: 1-Minimal Palms Moist Orientation: 0-Oriented Tacttile Disturbances: 0-None Auditory Disturbances: 0-None Visual Disturbances: 0-None Headache: 0-None Present CIWA-Ar Total Score: 6 BHS COWS - Scale Resting Pulse: 0= [place] 80 or Below Sweatin= Chills/Flushing Restless Observation: 1= Difficult to Sit Still Pupil Size: 0= Normal to Room Light Bone or Joint Aches: 1= Mild Discomfort Runny Nose/ Eye Tearin= Nasal Congestion GI Upset > 30mins: 1= Stomach Cramp Tremor Observation of Outstretched Hands: 1= Tremor [place], Not Seen Yawning Observation: 0= None Anxiety or Irritability: 1=Feels Anxious/Irritable Goose Flesh Skin: 3=Piloerection COWS Score: 10 S Progress Note (SOAP) Subjective: Pt would like own sneakers, says feeling fine. Vital Signs - 24 hr 02/02/18 02/02/18 02/02/18 13:18 17:27 21:10 Temperature 98.3 F 98.0 F 97.4 F L Pulse Rate 60 73 59 L Respiratory 18 18 18 Rate Blood Pressure 122/88 129/70 121/72 02/03/18 02/03/18 02/03/18 00:30 06:22 06:30 Temperature 96.8 F L Pulse Rate 53 L Respiratory 18 16 18 Rate Blood Pressure 120/69 Laboratory Tests 02/02/18 02/02/18 02/02/18 00:45 07:00 07:00 WBC 5.9 RBC 4.91 Hgb 13.4 Hct 40.2 MCV 82.0 MCH 27.3 MCHC 33.3 RDW 13.6 Plt Count 206 MPV 7.4 L Sodium 142 Potassium 3.8 Chloride 103 Carbon Dioxide 34 H Anion Gap 5 L BUN 13 Creatinine 0.9 Creat Clearance w eGFR > 60 Random Glucose 93 Calcium 8.4 L Total Bilirubin 0.3 AST 13 L D ALT 19 D Alkaline Phosphatase 105 Total Protein 7.0 Albumin 3.6 Urine Color Yellow Urine Appearance Cloudy Urine pH 5.0 Ur Specific [place] 1.019 Urine Protein 1+ H Urine Glucose (UA) Negative Urine Ketones Negative Urine Blood Negative Urine Nitrite Negative Urine Bilirubin Negative Urine Urobilinogen Negative Ur Leukocyte Esterase Negative Urine WBC (Auto) 4 Urine RBC (Auto) 1 Ur Epithelial Cells Rare Calcium Oxalate Crystal Moderate Urine Bacteria Rare Hyaline Casts 7 Granular Casts 7 Urine Mucus Few RPR Titer 02/02/18 07:00 WBC RBC Hgb Hct MCV MCH MCHC RDW Plt Count MPV Sodium Potassium Chloride Carbon Dioxide Anion Gap BUN Creatinine Creat Clearance w eGFR Random Glucose Calcium Total Bilirubin AST ALT Alkaline Phosphatase Total Protein Albumin Urine Color Urine Appearance Urine pH Ur Specific [place] Urine Protein Urine Glucose (UA) Urine Ketones Urine Blood Urine Nitrite Urine Bilirubin Urine Urobilinogen Ur Leukocyte Esterase Urine WBC (Auto) Urine RBC (Auto) Ur Epithelial Cells Calcium Oxalate Crystal Urine Bacteria Hyaline Casts Granular Casts Urine Mucus RPR Titer Nonreactive Ass: 32 Y.O. MALE WITH HX/O, BENZO AND HEROIN DEPENDENCE here for dual DETOX: continue detox protocol, permission for sneakers given
[2018-02-03] MEDS: LOPERAMIDE HCL 2 MG CAPSULE PO PRN ×2 (13:26→23:12)
[2018-02-03] MEDS: traZODone HCL 50 MG TABLET (FP) PO SCH (22:33)
[2018-02-03] MEDS: THIAMINE HCL 100 MG TABLET (FP) PO SCH (22:33)
[2018-02-03] MEDS: MELATONIN 5 MG TABLETS PO PRN (22:33)
[2018-02-04] MEDS: diazePAM 5 MG TABLET PO PRN ×4 (03:59→20:46)
[2018-02-04] MEDS: GABAPENTIN 300 MG CAPSULE (FP) PO SCH ×3 (08:16→22:24)
[2018-02-04] MEDS: PRENATAL VITAMINS W/ FOLIC ACID TABLET (FP) PO SCH (10:04)
[2018-02-04] MEDS: METHADONE HCL 5 MG TABLET (FOR DETOX USE ONLY) PO SCH (10:04)
[2018-02-04] MEDS: LOPERAMIDE HCL 2 MG CAPSULE PO PRN (10:05)
[2018-02-04] MEDS: NICOTINE 21 MG/24 HOURS TOPICAL PATCH TD SCH (10:05)
[2018-02-04] MEDS: P-EPHED 60MG/TRIPROLIDI 2.5MG TABLET PO PRN ×2 (10:05→17:00)
[2018-02-04] MEDS: ACETAMINOPHEN 325 MG TABLET (FP) PO PRN (10:05)
[2018-02-04] MEDS: diazePAM 5 MG TABLET PO SCH ×2 (10:06→22:24)
--- NOTE | 2018-02-04 11:32 | PN ---
[facility] CIWA - CIWA Score Nausea/Vomitin Muscle Tremors: 4-Moderate,w/Arms Extend Anxiety: 4-Mod. Anxious/Guarded Agitation: 5 Paroxysmal Sweats: 1-Minimal Palms Moist Orientation: 0-Oriented Tacttile Disturbances: 0-None Auditory Disturbances: 0-None Visual Disturbances: 0-None Headache: 0-None Present CIWA-Ar Total Score: 19 BHS COWS - Scale Resting Pulse: 1= [place] 81-100 Sweatin= Chills/Flushing Restless Observation: 3= Extraneous Movement Pupil Size: 0= Normal to Room Light Bone or Joint Aches: 4=Acute Joint/Muscle Pain Runny Nose/ Eye Tearin= Runny Nose/Eyes GI Upset > 30mins: 2= Nausea/Diarrhea Tremor Observation of Outstretched Hands: 1= Tremor [place], Not Seen Yawning Observation: 0= None Anxiety or Irritability: 2=Irritable/Anxious Goose Flesh Skin: 3=Piloerection COWS Score: 19 S Progress Note (SOAP) Subjective: PT C/O ANXIETY,CHILLS,GOOSE BUMPS,TEARY EYES,RUNNY NOSE,DIARRHEA,DECREASED APPETITE. Objective: 02/04/18 11:29 Vital Signs 02/04/18 02/04/18 02/04/18 03:30 06:08 10:44 Temperature 97.2 F L 96.6 F L Pulse Rate 60 81 Respiratory 18 18 20 Rate Blood Pressure 125/82 131/78 Laboratory Tests 02/02/18 02/02/18 02/02/18 00:45 07:00 07:00 WBC 5.9 RBC 4.91 Hgb 13.4 Hct 40.2 MCV 82.0 MCH 27.3 MCHC 33.3 RDW 13.6 Plt Count 206 MPV 7.4 L Sodium 142 Potassium 3.8 Chloride 103 Carbon Dioxide 34 H Anion Gap 5 L BUN 13 Creatinine 0.9 Creat Clearance w eGFR > 60 Random Glucose 93 Calcium 8.4 L Total Bilirubin 0.3 AST 13 L D ALT 19 D Alkaline Phosphatase 105 Total Protein 7.0 Albumin 3.6 Urine Color Yellow Urine Appearance Cloudy Urine pH 5.0 Ur Specific [place] 1.019 Urine Protein 1+ H Urine Glucose (UA) Negative Urine Ketones Negative Urine Blood Negative Urine Nitrite Negative Urine Bilirubin Negative Urine Urobilinogen Negative Ur Leukocyte Esterase Negative Urine WBC (Auto) 4 Urine RBC (Auto) 1 Ur Epithelial Cells Rare Calcium Oxalate Crystal Moderate Urine Bacteria Rare Hyaline Casts 7 Granular Casts 7 Urine Mucus Few RPR Titer 02/02/18 07:00 WBC RBC Hgb Hct MCV MCH MCHC RDW Plt Count MPV Sodium Potassium Chloride Carbon Dioxide Anion Gap BUN Creatinine Creat Clearance w eGFR Random Glucose Calcium Total Bilirubin AST ALT Alkaline Phosphatase Total Protein Albumin Urine Color Urine Appearance Urine pH Ur Specific [place] Urine Protein Urine Glucose (UA) Urine Ketones Urine Blood Urine Nitrite Urine Bilirubin Urine Urobilinogen Ur Leukocyte Esterase Urine WBC (Auto) Urine RBC (Auto) Ur Epithelial Cells Calcium Oxalate Crystal Urine Bacteria Hyaline Casts Granular Casts Urine Mucus RPR Titer Nonreactive Assessment: 02/04/18 11:30 WITHDRAWAL SX Plan: CONTINUE DETOX IMODIUM PRN ACTIFED PRN INCREASE PO FLUIDS/TEA NEEDED
[2018-02-04] MEDS: CYCLOBENZAPRINE HCL 5 MG TABLET PO SCH ×2 (14:23→22:24)
[2018-02-04] MEDS: IBUPROFEN 400 MG TABLET (FP) PO PRN (16:59)
[2018-02-04] MEDS: traZODone HCL 50 MG TABLET (FP) PO SCH (22:24)
[2018-02-04] MEDS: THIAMINE HCL 100 MG TABLET (FP) PO SCH (22:25)
[2018-02-04] MEDS: MELATONIN 5 MG TABLETS PO PRN (22:26)
[2018-02-04] MEDS: cloNIDine HCL 0.1 MG TABLET PO PRN (22:28)
[2018-02-05] MEDS: CYCLOBENZAPRINE HCL 5 MG TABLET PO SCH ×3 (05:47→22:19)
[2018-02-05] MEDS: GABAPENTIN 300 MG CAPSULE (FP) PO SCH ×3 (05:47→22:18)
[2018-02-05] MEDS ORDERED: METHADONE HCL 10 MG TABLET (FOR DETOX USE ONLY) PO SCH (10:00)
[2018-02-05] MEDS ORDERED: diazePAM 5 MG TABLET PO SCH (10:00)
[2018-02-05] MEDS: PRENATAL VITAMINS W/ FOLIC ACID TABLET (FP) PO SCH (10:16)
[2018-02-05] MEDS: NICOTINE 21 MG/24 HOURS TOPICAL PATCH TD SCH (10:16)
[2018-02-05] MEDS: ACETAMINOPHEN 325 MG TABLET (FP) PO PRN (10:21)
--- NOTE | 2018-02-05 11:44 | PN ---
[facility] Progress Note (SOAP) Subjective: ANXIETY,SWEATS,FATIGUE. Objective: 02/05/18 11:43 Vital Signs 02/05/18 02/05/18 06:15 09:10 Temperature 97.4 F L 96.8 F L Pulse Rate 48 L 59 L Respiratory 16 18 Rate Blood Pressure 115/71 118/78 Laboratory Tests 02/02/18 02/02/18 02/02/18 00:45 07:00 07:00 WBC 5.9 RBC 4.91 Hgb 13.4 Hct 40.2 MCV 82.0 MCH 27.3 MCHC 33.3 RDW 13.6 Plt Count 206 MPV 7.4 L Sodium 142 Potassium 3.8 Chloride 103 Carbon Dioxide 34 H Anion Gap 5 L BUN 13 Creatinine 0.9 Creat Clearance w eGFR > 60 Random Glucose 93 Calcium 8.4 L Total Bilirubin 0.3 AST 13 L D ALT 19 D Alkaline Phosphatase 105 Total Protein 7.0 Albumin 3.6 Urine Color Yellow Urine Appearance Cloudy Urine pH 5.0 Ur Specific [place] 1.019 Urine Protein 1+ H Urine Glucose (UA) Negative Urine Ketones Negative Urine Blood Negative Urine Nitrite Negative Urine Bilirubin Negative Urine Urobilinogen Negative Ur Leukocyte Esterase Negative Urine WBC (Auto) 4 Urine RBC (Auto) 1 Ur Epithelial Cells Rare Calcium Oxalate Crystal Moderate Urine Bacteria Rare Hyaline Casts 7 Granular Casts 7 Urine Mucus Few RPR Titer 02/02/18 07:00 WBC RBC Hgb Hct MCV MCH MCHC RDW Plt Count MPV Sodium Potassium Chloride Carbon Dioxide Anion Gap BUN Creatinine Creat Clearance w eGFR Random Glucose Calcium Total Bilirubin AST ALT Alkaline Phosphatase Total Protein Albumin Urine Color Urine Appearance Urine pH Ur Specific [place] Urine Protein Urine Glucose (UA) Urine Ketones Urine Blood Urine Nitrite Urine Bilirubin Urine Urobilinogen Ur Leukocyte Esterase Urine WBC (Auto) Urine RBC (Auto) Ur Epithelial Cells Calcium Oxalate Crystal Urine Bacteria Hyaline Casts Granular Casts Urine Mucus RPR Titer Nonreactive Assessment: 02/05/18 11:43 WITHDRAWAL SX Plan: CONTINUE DETOX [facility]
[2018-02-05] MEDS: cloNIDine HCL 0.1 MG TABLET PO PRN ×2 (14:51→22:18)
[2018-02-05] MEDS: hydrOXYzine PAMOATE 50 MG CAPSULE (FP) PO PRN ×3 (14:51→22:18)
[2018-02-05] MEDS: IBUPROFEN 400 MG TABLET (FP) PO PRN (19:18)
[2018-02-05] MEDS: P-EPHED 60MG/TRIPROLIDI 2.5MG TABLET PO PRN (19:19)
[2018-02-05] MEDS: THIAMINE HCL 100 MG TABLET (FP) PO SCH (22:18)
[2018-02-05] MEDS: traZODone HCL 50 MG TABLET (FP) PO SCH (22:19)
[2018-02-06] MEDS: GABAPENTIN 300 MG CAPSULE (FP) PO SCH (05:50)
[2018-02-06] MEDS: CYCLOBENZAPRINE HCL 5 MG TABLET PO SCH (05:50)
[2018-02-06 05:58] VITALS: BP 100/60; PULSE 52; TEMP 96.8
[2018-02-06] MEDS ORDERED: METHADONE HCL 5 MG TABLET (FOR DETOX USE ONLY) PO SCH (06:00)
[2018-02-06] MEDS: IBUPROFEN 400 MG TABLET (FP) PO PRN (06:08)
[2018-02-06] MEDS: hydrOXYzine PAMOATE 50 MG CAPSULE (FP) PO PRN (06:08)
--- NOTE | 2018-02-06 14:11 | PN ---
[facility] Progress Note (SOAP) Subjective: DETOX COMPLETED. ALERT O X 3. Objective: 02/06/18 14:10 Laboratory Tests 02/02/18 02/02/18 02/02/18 00:45 07:00 07:00 WBC 5.9 RBC 4.91 Hgb 13.4 Hct 40.2 MCV 82.0 MCH 27.3 MCHC 33.3 RDW 13.6 Plt Count 206 MPV 7.4 L Sodium 142 Potassium 3.8 Chloride 103 Carbon Dioxide 34 H Anion Gap 5 L BUN 13 Creatinine 0.9 Creat Clearance w eGFR > 60 Random Glucose 93 Calcium 8.4 L Total Bilirubin 0.3 AST 13 L D ALT 19 D Alkaline Phosphatase 105 Total Protein 7.0 Albumin 3.6 Urine Color Yellow Urine Appearance Cloudy Urine pH 5.0 Ur Specific [place] 1.019 Urine Protein 1+ H Urine Glucose (UA) Negative Urine Ketones Negative Urine Blood Negative Urine Nitrite Negative Urine Bilirubin Negative Urine Urobilinogen Negative Ur Leukocyte Esterase Negative Urine WBC (Auto) 4 Urine RBC (Auto) 1 Ur Epithelial Cells Rare Calcium Oxalate Crystal Moderate Urine Bacteria Rare Hyaline Casts 7 Granular Casts 7 Urine Mucus Few RPR Titer 02/02/18 07:00 WBC RBC Hgb Hct MCV MCH MCHC RDW Plt Count MPV Sodium Potassium Chloride Carbon Dioxide Anion Gap BUN Creatinine Creat Clearance w eGFR Random Glucose Calcium Total Bilirubin AST ALT Alkaline Phosphatase Total Protein Albumin Urine Color Urine Appearance Urine pH Ur Specific [place] Urine Protein Urine Glucose (UA) Urine Ketones Urine Blood Urine Nitrite Urine Bilirubin Urine Urobilinogen Ur Leukocyte Esterase Urine WBC (Auto) Urine RBC (Auto) Ur Epithelial Cells Calcium Oxalate Crystal Urine Bacteria Hyaline Casts Granular Casts Urine Mucus RPR Titer Nonreactive Assessment: 02/06/18 14:10 MEDICALLY STABLE Plan: D/C PT TODAY
--- NOTE | 2018-02-06 14:19 | DS ---
[facility] Detox Discharge Summary Admission Date: 02/01/18 Discharge Date: 02/06/18 - History Present History: Opioid Dependence Additional Comments: DETOX COMPLETED. Pertinent Past History: PLEASE SEE DX BELOW - Physical Exam Results Vital Signs: Vital Signs Temperature 96.8 F L 02/06/18 05:58 Pulse Rate 52 L 02/06/18 05:58 Respiratory Rate 18 02/06/18 05:58 Blood Pressure 100/60 02/06/18 05:58 O2 Sat by Pulse Oximetry (%) Pertinent Admission Physical Exam Findings: WITHDRAWAL SX Laboratory Tests 02/02/18 02/02/18 02/02/18 00:45 07:00 07:00 WBC 5.9 RBC 4.91 Hgb 13.4 Hct 40.2 MCV 82.0 MCH 27.3 MCHC 33.3 RDW 13.6 Plt Count 206 MPV 7.4 L Sodium 142 Potassium 3.8 Chloride 103 Carbon Dioxide 34 H Anion Gap 5 L BUN 13 Creatinine 0.9 Creat Clearance w eGFR > 60 Random Glucose 93 Calcium 8.4 L Total Bilirubin 0.3 AST 13 L D ALT 19 D Alkaline Phosphatase 105 Total Protein 7.0 Albumin 3.6 Urine Color Yellow Urine Appearance Cloudy Urine pH 5.0 Ur Specific [place] 1.019 Urine Protein 1+ H Urine Glucose (UA) Negative Urine Ketones Negative Urine Blood Negative Urine Nitrite Negative Urine Bilirubin Negative Urine Urobilinogen Negative Ur Leukocyte Esterase Negative Urine WBC (Auto) 4 Urine RBC (Auto) 1 Ur Epithelial Cells Rare Calcium Oxalate Crystal Moderate Urine Bacteria Rare Hyaline Casts 7 Granular Casts 7 Urine Mucus Few RPR Titer 02/02/18 07:00 WBC RBC Hgb Hct MCV MCH MCHC RDW Plt Count MPV Sodium Potassium Chloride Carbon Dioxide Anion Gap BUN Creatinine Creat Clearance w eGFR Random Glucose Calcium Total Bilirubin AST ALT Alkaline Phosphatase Total Protein Albumin Urine Color Urine Appearance Urine pH Ur Specific [place] Urine Protein Urine Glucose (UA) Urine Ketones Urine Blood Urine Nitrite Urine Bilirubin Urine Urobilinogen Ur Leukocyte Esterase Urine WBC (Auto) Urine RBC (Auto) Ur Epithelial Cells Calcium Oxalate Crystal Urine Bacteria Hyaline Casts Granular Casts Urine Mucus RPR Titer Nonreactive - Treatment Hospital Course: Detox Protocol Followed, Detoxed Safely, Responded well, Discharged Condition Good - Medication Discharge Medications: Ambulatory Orders traZODone HCL [Desyrel -] 50 mg PO HS #30 tablet 08/20/15 Buprenorphine/Naloxone [Suboxone 8Mg/2Mg Sl Film -] 1 film SL TID 06/22/16 Gabapentin [Neurontin -] 300 mg PO Q8H 06/22/16 - Diagnosis (1) Cannabis dependence Status: Acute (2) Nicotine dependence Status: Acute Qualifiers: Nicotine product type: cigarettes Substance use status: in withdrawal Qualified Code(s): F17.213 - Nicotine dependence, cigarettes, with withdrawal (3) Opioid dependence with withdrawal Status: Acute (4) Sedative, hypnotic or anxiolytic dependence with withdrawal, uncomplicated Status: Acute (5) Neuropathy Status: Chronic - AMA Did Patient Leave Against Medical Advice: No
== END 2018-02-06 08:41 | disposition home or self-care (01) | DRG 773 ==
LOC: YASAS 14:59 → Y3N 20:17
PROC: HZ2ZZZZ Detoxification Services for Substance Abuse Treatment (ICD-10-PCS; principal; 2018-02-01)
DX: F11.23 Opioid dependence with withdrawal (principal); F13.230 Sedative, hypnotic or anxiolytic dependence with withdrawal, uncomplicated; F12.20 Cannabis dependence, uncomplicated; F10.10 Alcohol abuse, uncomplicated; F17.213 Nicotine dependence, cigarettes, with withdrawal; F34.1 Dysthymic disorder; F19.24 Other psychoactive substance dependence with psychoactive substance-induced mood disorder; F41.9 Anxiety disorder, unspecified; G62.9 Polyneuropathy, unspecified; G47.00 Insomnia, unspecified
CPT/HCPCS: 36415; 80053; 81003; 81015; 85027; 86593; 93005; 93010; J0735

== ENCOUNTER 2018-08-31 09:09 | Inpatient (IN) | payer OTHER ==
[2018-08-31 12:05] VITALS: BMI 22.1
--- NOTE | 2018-08-31 13:34 | HP ---
CIWA Score Nausea/Vomitin-Mild Nausea/No Vomiting Muscle Tremors: 4-Moderate,w/Arms Extend Anxiety: 3 Agitation: 3 Paroxysmal Sweats: 3 Orientation: 0-Oriented Tacttile Disturbances: 0-None Auditory Disturbances: 0-None Visual Disturbances: 0-None Headache: 2-Mild CIWA-Ar Total Score: 16 - Admission Criteria OASAS Guidelines: Admission for Medically Managed Detox: Requires at least one of the followin. CIWA greater than 12 2. Seizures within the past 24 hours 3. Delirium tremens within the past 24 hours 4. Hallucinations within the past 24 hours 5. Acute intervention needed for co occurring medical disorder 6. Acute intervention needed for co occurring psychiatric disorder 7. Severe withdrawal that cannot be handled at a lower level of care (continued vomiting, continued diarrhea, abnormal vital signs) requiring intravenous medication and/or fluids 8. Admission ROS S - HPI Chief Complaint: I am here for detox and get clean again. Allergies/Adverse Reactions: Allergies Allergy/AdvReac Type Severity Reaction Status Date / Time No Known Allergies Allergy Verified 02/01/18 19:45 History of Present Illness: Pt is a 33yrold male with a history of Xanax dependence seeking detox for treatment. pt is on a suboxone maintenance program prescribed psychiatrist Dr. Hatch; last received his rx on 08/15/2018 pt is prescribed 8/2mg film TID. Pt has his recent Rx in his person. Medical h/o : broken ankle/heel has plate and 6screws, left elbow surgery. Exam Limitations: Physical Impairment (pt uses a cane for ambulating) - Ebola screening Have you traveled outside of the country in the last 21 days: No Have you had contact with anyone from an Ebola affected area: No Have you been sick,other than usual withdrawal symptoms: No Do you have a fever: No - Review of Systems Constitutional: Chills, Diaphoresis, Night Sweats, Changes in sleep EENT: reports: Tearing, Nose Congestion Respiratory: reports: No Symptoms reported Cardiac: reports: No Symptoms Reported GI: reports: Diarrhea, Poor Appetite, Poor Fluid Intake : reports: No Symptoms Reported Musculoskeletal: reports: Joint Pain, Muscle Pain Integumentary: reports: Flushing, Sweating Neuro: reports: Headache, Tingling, Tremors Endocrine: reports: Excessive Sweating, Flushing, Intolerance to Cold, Intolerance to Heat Hematology: reports: No Symptoms Reported Psychiatric: reports: Judgement Intact, Mood/Affect Appropiate, Orientated x3, Agitated, Anxious Other Systems: Reviewed and Negative Patient History - Patient Medical History Hx Anemia: No Hx Asthma: No Hx Chronic Obstructive Pulmonary Disease (COPD): No Hx Cancer: No Hx Cardiac Disorders: No Hx Congestive Heart Failure: No Hx Hypertension: No Hx Hypercholesterolemia: No Hx Pacemaker: No HX Cerebrovascular Accident: No Hx Seizures: No Hx Dementia: No Hx Diabetes: No Hx Gastrointestinal Disorders: No Hx Liver Disease: No Hx Genitourinary Disorders: No Hx Sexually Transmitted Disorders: No Hx Renal Disease (ESRD): No Hx Thyroid Disease: No Hx Human Immunodeficiency Virus (HIV): No (pt denies) Hx Hepatitis C: No (pt denies) Hx Depression: Yes (MOOD D/O) Hx Suicide Attempt: No (denies) Hx Bipolar Disorder: No Hx Schizophrenia: No Other Medical History: anxiety/insomnia - Patient Surgical History Past Surgical History: Yes Hx Neurologic Surgery: No Hx Cataract Extraction: No Hx Cardiac Surgery: No Hx Lung Surgery: No Hx Breast Surgery: No Hx Breast Biopsy: No Hx Abdominal Surgery: No Hx Appendectomy: No Hx Cholecystectomy: No Hx Genitourinary Surgery: No Hx Section: No Hx Orthopedic Surgery: Yes (left ankle fracture with ORIF including plate and screws) Anesthesia Reaction: No - PPD History Previous Implant?: Yes Documented Results: Negative w/o proof Date: 02/03/18 Results: 0 mm PPD to be Administered?: No - Reproductive History Patient is a Female of Child Bearing Age (11 -55 yrs old): No - Smoking Cessation Smoking history: Current every day smoker Have you smoked in the past 12 months: Yes Aproximately how many cigarettes per day: 20 Cigars Per Day: 0 Hx Chewing Tobacco Use: No Initiated information on smoking cessation: Yes 'Breaking Loose' booklet given: 08/31/18 - Substance & Tx. History Hx Alcohol Use: No Hx Substance Use: Yes Substance Use Type: Tranquilizers Hx Substance Use Treatment: Yes (last detox 2017) - Substances Abused Alprazolam (Xanax) Route: Oral Frequency: Daily Amount used: 10mg Age of first use: 29 Date of Last Use: 08/30/18 Heroin Route: Injection Frequency: Daily Amount used: 2 bundles Age of first use: 29 Date of Last Use: 08/30/18 Family Disease History - Family Disease History Family Disease History: Diabetes: Grandparent, CA: Grandparent Admission Physical Exam [facility] - Vital Signs Vital Signs: Vital Signs - 24 hr 08/31/18 12:00 Temperature 96.7 F L Pulse Rate 60 Respiratory 20 Rate Blood Pressure 125/67 - Physical General Appearance: Yes: Appropriately Dressed, Moderate Distress, Thin, Tremorous, Irritable, Sweating, Anxious HEENTM: Yes: Normal Voice, Rhinorrhea Respiratory: Yes: Lungs Clear, Normal Breath Sounds, No Respiratory Distress Neck: Yes: Within Normal Limits Breast: Yes: Within Normal Limits Cardiology: Yes: Regular Rhythm, Regular Rate, S1, S2 Abdominal: Yes: Normal Bowel Sounds Genitourinary: Yes: Within Normal Limits Back: Yes: Normal Inspection Musculoskeletal: Yes: Back pain, Other (uses cane for old surgery to left ankle) Extremities: Yes: Normal Capillary Refill, Normal Inspection, Non-Tender, Tremors Neurological: Yes: Fully Oriented, Alert, Normal Response Integumentary: Yes: Normal Color, Diaphoresis, Track Carl Lymphatic: Yes: Within Normal Limits - Diagnostic (1) Drug-induced mood disorder Current Visit: No Status: Acute (2) Insomnia Current Visit: Yes Status: Chronic Qualifiers: Insomnia type: unspecified Qualified Code(s): G47.00 - Insomnia, unspecified (3) Nicotine dependence Current Visit: Yes Status: Chronic Qualifiers: Nicotine product type: cigarettes Substance use status: uncomplicated Qualified Code(s): F17.210 - Nicotine dependence, cigarettes, uncomplicated (4) Opioid dependence Current Visit: No Status: Chronic Qualifiers: Substance use status: uncomplicated Qualified Code(s): F11.20 - Opioid dependence, uncomplicated (5) Sedative, hypnotic or anxiolytic dependence with withdrawal, uncomplicated Current Visit: Yes Status: Chronic (6) Neuropathy Current Visit: Yes Status: Chronic (7) Encounter for monitoring Suboxone maintenance therapy Current Visit: Yes Status: Chronic Cleared for Admission [facility] - Detox or Rehab [facility] Level of Care: Medically Managed Detox Regimen/Protocol: Valium [facility] Breath Alcohol Content Breath Alcohol Content: 0 Urine Drug Screen - Results Drug Screen Negative: No Urine Drug Screen Results: THC-Marijuana, OPI-Opiates, BZO-Benzodiazepines, FEN- Fentanyl Inpatient Rehab Admission - Rehab Decision to Admit Inpatient rehab admission?: No
[2018-08-31] MEDS ORDERED: MAGNESIUM CITRATE 300 ML BOTTLE PO PRN (13:46)
[2018-08-31] MEDS ORDERED: MAGNESIUM HYDROX 2400MG/30ML ORAL SUSPENSION 30 ML CUP PO PRN (13:46)
[2018-08-31] MEDS ORDERED: NICOTINE POLACRILEX 4 MG GUM BUC PRN (13:46)
[2018-08-31] MEDS ORDERED: ONDANSETRON *ODT* 4 MG TABLET SL PRN (13:46)
[2018-08-31] MEDS ORDERED: MELATONIN 5 MG TABLETS PO PRN (13:46)
[2018-08-31] MEDS ORDERED: MENTHOL/PHENOL 1 EACH UD MM PRN (13:46)
[2018-08-31] MEDS ORDERED: BISMUTH SUBSALICYLATE 524 MG/30 ML UD PO PRN (13:46)
[2018-08-31] MEDS ORDERED: IBUPROFEN 400 MG TABLET (FP) PO PRN (13:46)
[2018-08-31] MEDS ORDERED: diazePAM 5 MG TABLET PO ONE (13:46)
[2018-08-31] MEDS ORDERED: MAG HYDROX/AL HYDROX/SIMETH 30 ML UNIT-DOSE CUP PO PRN (13:46)
[2018-08-31] MEDS ORDERED: ACETAMINOPHEN 325 MG TABLET (FP) PO PRN ×2 (13:46)
[2018-08-31] MEDS ORDERED: BUPRENORPHINE/NALOXONE 8 MG/2 MG FILM PACKET SL ONE (13:55)
[2018-08-31] MEDS: BACLOFEN 10 MG TABLET (FP) PO SCH ×2 (15:55→22:05)
[2018-08-31] MEDS: IBUPROFEN 400 MG TABLET (FP) PO PRN (17:05)
[2018-08-31] MEDS: diazePAM 5 MG TABLET PO PRN ×2 (17:06→18:30)
[2018-08-31] MEDS ORDERED: traZODone HCL 100 MG TABLET (FP) PO PRN (22:00)
[2018-08-31] MEDS: THIAMINE HCL 100 MG TABLET (FP) PO SCH (22:05)
[2018-08-31] MEDS: hydrOXYzine PAMOATE 25 MG CAPSULE (FP) PO PRN (22:05)
[2018-08-31] MEDS: BUPRENORPHINE/NALOXONE 8 MG/2 MG FILM PACKET SL SCH (22:05)
[2018-08-31] MEDS: diazePAM 5 MG TABLET PO SCH (22:07)
[2018-09-01] MEDS: diazePAM 5 MG TABLET PO SCH ×3 (06:16→22:47)
[2018-09-01] MEDS: BUPRENORPHINE/NALOXONE 8 MG/2 MG FILM PACKET SL SCH ×3 (06:16→22:47)
[2018-09-01] MEDS: BACLOFEN 10 MG TABLET (FP) PO SCH ×3 (06:16→23:32)
[2018-09-01] MEDS: diazePAM 5 MG TABLET PO PRN ×3 (08:51→17:50)
[2018-09-01] MEDS: PRENATAL VITAMINS W/ FOLIC ACID TABLET (FP) PO SCH (10:28)
[2018-09-01] MEDS: IBUPROFEN 400 MG TABLET (FP) PO PRN (10:29)
[2018-09-01] MEDS: hydrOXYzine PAMOATE 25 MG CAPSULE (FP) PO PRN (10:29)
[2018-09-01] MEDS: NICOTINE 21 MG/24 HOURS TOPICAL PATCH TD SCH (10:30)
--- NOTE | 2018-09-01 10:47 | PN ---
S CIWA - CIWA Score Nausea/Vomitin Muscle Tremors: 2 Anxiety: 3 Agitation: 3 Paroxysmal Sweats: 2 Orientation: 0-Oriented Tacttile Disturbances: 1-Very Mild Itch/Numbness Auditory Disturbances: 0-None Visual Disturbances: 0-None Headache: 1-Very Mild CIWA-Ar Total Score: 14 S Progress Note (SOAP) Subjective: Anxious, sweats, irritable, nasal congestion, diarrhea x 3 last night, left ankle pain and decreased appetite Objective: 09/01/18 10:46 Vital Signs 09/01/18 09/01/18 09/01/18 03:30 08:18 09:33 Temperature 97.5 F L 97.7 F Pulse Rate 77 70 Respiratory 18 18 16 Rate Blood Pressure 143/80 140/80 Labs pending Assessment: 09/01/18 10:46 Withdrawal sx Left ankle pain r/t fx, s/p surgery for fixation Plan: Continue detox Encourage pain management Safety precautions and monitoring Ensure for nutritional supplement
[2018-09-01 11:04] LABS: HEMATOCRIT 40.8 % (35.4-49); HEMOGLOBIN 13.2 GM/dL (11.7-16.9); MCH 27.8 pg (25.7-33.7); MCHC 32.5 g/dl (32.0-35.9); MEAN CELL VOLUME 85.6 fl (80-96); MEAN PLT VOLUME 8.1 fl (7.5-11.1); PLATELET COUNT 240 K/MM3 (134-434); RBC 4.76 M/mm3 (4.00-5.60); RDW 13.3 % (11.9-15.9)
[2018-09-01 11:08] LABS: ALBUMIN 4.5 g/dl (3.4-5.0); ALK PHOS 95 U/L (45-117); ANION GAP 4 MMOL/L (8-16); BILIRUBIN,TOTAL 0.7 mg/dL (0.2-1); BLOOD UREA NITROGEN 19 mg/dL (7-18); CALCIUM 8.8 mg/dL (8.5-10.1); CHLORIDE 95 mmol/L (98-107); CO2 35 mmol/L (21-32); CREATININE 0.9 mg/dL (0.55-1.3); GLUCOSE,RANDOM 71 mg/dL (74-106); POTASSIUM 3.9 mmol/L (3.5-5.1); SGOT/AST 11 U/L (15-37); SGPT/ALT 16 U/L (13-61); SODIUM 134 mmol/L (136-145); TOT PROT 7.9 g/dl (6.4-8.2)
[2018-09-01] MEDS: THIAMINE HCL 100 MG TABLET (FP) PO SCH (22:49)
[2018-09-02] MEDS: BACLOFEN 10 MG TABLET (FP) PO SCH ×3 (06:45→22:21)
[2018-09-02] MEDS: BUPRENORPHINE/NALOXONE 8 MG/2 MG FILM PACKET SL SCH ×3 (06:45→22:21)
[2018-09-02] MEDS: IBUPROFEN 400 MG TABLET (FP) PO PRN (10:39)
[2018-09-02] MEDS: diazePAM 5 MG TABLET PO SCH ×2 (10:39→22:21)
[2018-09-02] MEDS: PRENATAL VITAMINS W/ FOLIC ACID TABLET (FP) PO SCH (10:39)
[2018-09-02] MEDS: NICOTINE 21 MG/24 HOURS TOPICAL PATCH TD SCH (10:40)
[2018-09-02] MEDS ORDERED: LIDOCAINE 5% TOPICAL PATCH TP ONE (10:58)
--- NOTE | 2018-09-02 11:16 | PN ---
S CIWA - CIWA Score Nausea/Vomitin-No Nausea/No Vomiting Muscle Tremors: 3 Anxiety: 3 Agitation: 3 Paroxysmal Sweats: 3 Orientation: 0-Oriented Tacttile Disturbances: 0-None Auditory Disturbances: 0-None Visual Disturbances: 0-None Headache: 0-None Present CIWA-Ar Total Score: 12 B[facility] Progress Note (SOAP) Subjective: back pain anxiety sweats low appetite Objective: 09/02/18 11:12 Vital Signs Temperature 98.1 F 09/02/18 09:50 Pulse Rate 50 L 09/02/18 09:50 Respiratory Rate 16 09/02/18 09:50 Blood Pressure 135/75 09/02/18 09:50 O2 Sat by Pulse Oximetry (%) Laboratory Tests 09/01/18 09/01/18 09/01/18 05:35 05:35 05:35 WBC 7.0 RBC 4.76 Hgb 13.2 Hct 40.8 MCV 85.6 MCH 27.8 MCHC 32.5 RDW 13.3 Plt Count 240 MPV 8.1 Sodium 134 L Potassium 3.9 Chloride 95 L Carbon Dioxide 35 H Anion Gap 4 L BUN 19 H Creatinine 0.9 Creat Clearance w eGFR 96.60 Random Glucose 71 L Calcium 8.8 Total Bilirubin 0.7 AST 11 L ALT 16 Alkaline Phosphatase 95 Total Protein 7.9 Albumin 4.5 RPR Titer Nonreactive HIV 1&2 Antibody Screen HIV P24 Antigen 09/01/18 05:50 WBC RBC Hgb Hct MCV MCH MCHC RDW Plt Count MPV Sodium Potassium Chloride Carbon Dioxide Anion Gap BUN Creatinine Creat Clearance w eGFR Random Glucose Calcium Total Bilirubin AST ALT Alkaline Phosphatase Total Protein Albumin RPR Titer HIV 1&2 Antibody Screen Negative HIV P24 Antigen Negative aaox3 ambulating no acute distress Assessment: 09/02/18 11:14 withdrawal sx Plan: continue detox increase fluids lidocaine patch ensure plus 120ml po bid
[2018-09-02] MEDS ORDERED: LIDOCAINE PATCH REMOVAL MC SCH (22:00)
[2018-09-02] MEDS: THIAMINE HCL 100 MG TABLET (FP) PO SCH (22:21)
[2018-09-03] MEDS ORDERED: diazePAM 5 MG TABLET PO SCH (06:00)
[2018-09-03] MEDS: BUPRENORPHINE/NALOXONE 8 MG/2 MG FILM PACKET SL SCH (06:11)
[2018-09-03] MEDS: BACLOFEN 10 MG TABLET (FP) PO SCH (06:11)
--- NOTE | 2018-09-03 08:33 | DS ---
[facility] Detox Discharge Summary Admission Date: 08/31/18 Discharge Date: 09/03/18 - History Present History: Opioid Dependence, Sedative Dependence - Physical Exam Results Vital Signs: Vital Signs Temperature 97.7 F 09/03/18 06:21 Pulse Rate 56 L 09/03/18 06:21 Respiratory Rate 16 09/03/18 06:21 Blood Pressure 125/80 09/03/18 06:21 O2 Sat by Pulse Oximetry (%) - Treatment Hospital Course: Detox Protocol Followed, Detoxed Safely, Responded well, Discharged Condition Good, Rehab Referral Accepted - Medication Discharge Medications: Ambulatory Orders traZODone HCL [Desyrel -] 50 mg PO HS #30 tablet 01/22/15 Buprenorphine/Naloxone [Suboxone 8Mg/2Mg Sl Film -] 1 film SL TID 06/22/16 Gabapentin [Neurontin -] 300 mg PO Q8H 06/22/16 - Diagnosis (1) Drug-induced mood disorder Current Visit: No Status: Acute (2) Insomnia Current Visit: Yes Status: Chronic Qualifiers: Insomnia type: unspecified Qualified Code(s): G47.00 - Insomnia, unspecified (3) Nicotine dependence Current Visit: Yes Status: Chronic Qualifiers: Nicotine product type: cigarettes Substance use status: uncomplicated Qualified Code(s): F17.210 - Nicotine dependence, cigarettes, uncomplicated (4) Opioid dependence Current Visit: Yes Status: Chronic Qualifiers: Substance use status: uncomplicated Qualified Code(s): F11.20 - Opioid dependence, uncomplicated (5) Sedative, hypnotic or anxiolytic dependence with withdrawal, uncomplicated Current Visit: Yes Status: Chronic (6) Neuropathy Current Visit: Yes Status: Chronic (7) Encounter for monitoring Suboxone maintenance therapy Current Visit: Yes Status: Chronic - AMA Did Patient Leave Against Medical Advice: No (referred achers rehab)
[2018-09-03 08:46] VITALS: BP 139/68; PULSE 64; TEMP 97.5
[2018-09-03] MEDS ORDERED: LIDOCAINE 5% TOPICAL PATCH TP SCH (10:00)
== END 2018-09-03 09:15 | disposition home or self-care (01) | DRG 773 ==
LOC: YASAS 09:09 → Y6N 14:18
PROVIDERS: ADMIT Surgery; ATTEND Surgery
PROC: HZ2ZZZZ Detoxification Services for Substance Abuse Treatment (ICD-10-PCS; principal; 2018-08-31)
DX: F13.230 Sedative, hypnotic or anxiolytic dependence with withdrawal, uncomplicated (principal); F11.20 Opioid dependence, uncomplicated; F17.210 Nicotine dependence, cigarettes, uncomplicated; F19.24 Other psychoactive substance dependence with psychoactive substance-induced mood disorder; G47.00 Insomnia, unspecified; G62.9 Polyneuropathy, unspecified
CPT/HCPCS: 36415; 80053; 85027; 86593; 87389; J0475

== ENCOUNTER 2020-05-09 20:48 | Inpatient (IN) | payer OTHER ==
[2020-05-09 20:58] VITALS: BMI 22.6
[2020-05-09 22:21] LABS: BASO % 0.5 % (0-2.0); EOS % 2.3 % (0-4.5); HEMATOCRIT 37.7 % (35.4-49); HEMOGLOBIN 12.9 GM/dL (11.7-16.9); LYMPH % 25.9 % (8-40); MCH 28.8 pg (25.7-33.7); MCHC 34.3 g/dl (32.0-35.9); MEAN CELL VOLUME 83.8 fl (80-96); MEAN PLT VOLUME 7.4 fl (7.5-11.1); MONO % 12.3 % (3.8-10.2); PLATELET COUNT 271 K/MM3 (134-434); RDW 13.4 % (11.9-15.9); WHITE BLOOD COUNT 5.9 K/mm3 (4.0-10.0)
[2020-05-09 22:35] LABS: INR 0.98 (0.83-1.09); PROTHROMBIN TIME (PATIENT) 12.1 SEC (9.7-13.0)
[2020-05-09 22:38] LABS: ACTIVATED PTT 31.2 SECONDS (25.2-36.5)
[2020-05-09 22:41] LABS: CHLORIDE 100 mmol/L (98-107); POTASSIUM 3.6 mmol/L (3.5-5.1); SODIUM 140 mmol/L (136-145)
[2020-05-09 22:43] LABS: CALCIUM 9.5 mg/dL (8.5-10.1); GLUCOSE,RANDOM 85 mg/dL (74-106)
[2020-05-09 22:44] LABS: ALBUMIN 4.5 g/dl (3.4-5.0); ANION GAP 6 MMOL/L (8-16); BLOOD UREA NITROGEN 23.3 mg/dL (7-18); CO2 34 mmol/L (21-32); MAGNESIUM 2.4 mg/dL (1.8-2.4)
[2020-05-09 22:47] LABS: CREATININE 1.4 mg/dL (0.55-1.3); SGOT/AST 100 U/L (15-37); SGPT/ALT 45 U/L (13-61)
[2020-05-09 22:48] LABS: BILIRUBIN,TOTAL 0.5 mg/dL (0.2-1); TOT PROT 7.9 g/dl (6.4-8.2)
[2020-05-09 22:49] LABS: ALK PHOS 105 U/L (45-117)
[2020-05-09] MEDS ORDERED: SODIUM CHLORIDE 0.9% 500 ML INFUS.BAG IV ONE ×2 (22:55→23:45)
[2020-05-10] MEDS ORDERED: SODIUM CHLORIDE 0.9% 500 ML INFUS.BAG IV ONE (00:08)
[2020-05-10] MEDS ORDERED: LACTATED RINGERS SOLUTION 1,000 ML IV STA ×2 (00:11)
[2020-05-10] MEDS ORDERED: METHADONE HCL 10 MG TABLET PO ONE (00:16)
[2020-05-10] MEDS ORDERED: METHADONE HCL 10 MG TABLET ONE (00:27)
[2020-05-10 03:14] LABS: URINE APPEARANCE CLEAR; URINE BILIRUBIN NEGATIVE (NEGATIVE); URINE COLOR YELLOW; URINE GLUCOSE (UA) NEGATIVE (NEGATIVE); URINE KETONE NEGATIVE (NEGATIVE); URINE LEUK ESTERASE NEGATIVE (NEGATIVE); URINE NITRITE NEGATIVE (NEGATIVE); URINE PROTEIN NEGATIVE (NEGATIVE); URINE UROBILINOGEN 0.2 mg/dL (0.2-1.0)
[2020-05-10 03:30] LABS: METHADONE, UR NEGATIVE ng/ml (CUTOFF=300); PHENCYCLIDINE,URINE NEGATIVE ng/ml (CUTOFF=25); URINE AMPHETAMINES NEGATIVE ng/ml (CUTOFF=500); URINE BARBITURATES NEGATIVE ng/ml (CUTOFF=200)
[2020-05-10 03:41] LABS: URINE BENZODIAZEPINES POSITIVE ng/ml (CUTOFF=200)
[2020-05-10 03:42] LABS: COCAINE, UR POSITIVE ng/ml (CUTOFF=300)
[2020-05-10 03:43] LABS: OPIATES, URI POSITIVE ng/ml (CUTOFF=300)
[2020-05-10] MEDS ORDERED: diphenhydrAMINE HCL 25 MG CAPSULE (FP) PO ONE (03:53)
[2020-05-10] MEDS ORDERED: cloNIDine HCL 0.1 MG TABLET PO PRN (03:54)
[2020-05-10] MEDS ORDERED: chlordiazePOXIDE 5 MG CAPSULE ONE (04:21)
[2020-05-10] MEDS: SODIUM CHLORIDE 1,000 ML IV SCH (04:50)
[2020-05-10] MEDS ORDERED: chlordiazePOXIDE 5 MG CAPSULE PO ONE (05:00)
[2020-05-10] MEDS: HEPARIN NA (PORCINE) 5,000 UNITS/ML 1ML VIAL SQ SCH ×3 (07:12→21:48)
[2020-05-10] MEDS ORDERED: ACETAMINOPHEN INJECTION 100 ML IVPB ONE (08:13)
[2020-05-10] MEDS: ACETAMINOPHEN 1000 MG/100 ML VIAL (NON FORMULARY) IVPB PRN ×2 (08:18→14:19)
[2020-05-10] MEDS ORDERED: GABAPENTIN 100 MG CAPSULE ONE (08:19)
[2020-05-10] MEDS: GABAPENTIN 300 MG CAPSULE PO SCH ×3 (08:27→21:47)
[2020-05-10 09:08] LABS: BASO % 0.3 % (0-2.0); EOS % 1.5 % (0-4.5); LYMPH % 26.6 % (8-40); MCH 28.7 pg (25.7-33.7); MCHC 34.4 g/dl (32.0-35.9); MEAN CELL VOLUME 83.6 fl (80-96); MEAN PLT VOLUME 7.6 fl (7.5-11.1); MONO % 11.2 % (3.8-10.2); NEUT % 60.4 % (42.8-82.8); PLATELET COUNT 228 K/MM3 (134-434); RBC 3.83 M/mm3 (4.00-5.60); RDW 13.2 % (11.9-15.9); WHITE BLOOD COUNT 4.9 K/mm3 (4.0-10.0)
[2020-05-10] MEDS ORDERED: THIAMINE HCL 100 MG TABLET (FP) ONE (09:14)
[2020-05-10] MEDS ORDERED: FOLIC ACID 1 MG TABLET (FP) ONE (09:14)
[2020-05-10 09:15] LABS: INR 1.09 (0.83-1.09); PROTHROMBIN TIME (PATIENT) 13.1 SEC (9.7-13.0)
[2020-05-10] MEDS: THIAMINE HCL 100 MG TABLET (FP) PO SCH (09:19)
[2020-05-10] MEDS: FOLIC ACID 1 MG TABLET (FP) PO SCH (09:19)
[2020-05-10 09:29] LABS: POTASSIUM 4.1 mmol/L (3.5-5.1)
[2020-05-10 09:32] LABS: ALBUMIN 3.1 g/dl (3.4-5.0); BLOOD UREA NITROGEN 19.5 mg/dL (7-18); CALCIUM 8.1 mg/dL (8.5-10.1); MAGNESIUM 2.1 mg/dL (1.8-2.4)
[2020-05-10 09:35] LABS: CREATININE 0.8 mg/dL (0.55-1.3)
[2020-05-10 09:36] LABS: PHOSPHOROUS 3.3 mg/dL (2.5-4.9)
[2020-05-10 09:37] LABS: BILIRUBIN,TOTAL 0.3 mg/dL (0.2-1)
[2020-05-10 09:52] LABS: TOT PROT 5.8 g/dl (6.4-8.2)
[2020-05-10] MEDS ORDERED: METHADONE HCL 5 MG TABLET PO ONE (21:00)
[2020-05-10] MEDS ORDERED: traZODone HCL 50 MG TABLET (FP) PO SCH (22:00)
[2020-05-11] MEDS: SODIUM CHLORIDE 1,000 ML IV SCH (06:04)
[2020-05-11] MEDS: HEPARIN NA (PORCINE) 5,000 UNITS/ML 1ML VIAL SQ SCH ×2 (06:11→15:39)
[2020-05-11] MEDS: GABAPENTIN 300 MG CAPSULE PO SCH ×2 (06:12→15:39)
[2020-05-11 07:54] LABS: BASO % 0.3 % (0-2.0); EOS % 0.2 % (0-4.5); HEMATOCRIT 34.8 % (35.4-49); HEMOGLOBIN 11.7 GM/dL (11.7-16.9); MCH 27.7 pg (25.7-33.7); MCHC 33.6 g/dl (32.0-35.9); MEAN CELL VOLUME 82.5 fl (80-96); MEAN PLT VOLUME 7.6 fl (7.5-11.1); MONO % 7.9 % (3.8-10.2); NEUT % 70.6 % (42.8-82.8); PLATELET COUNT 243 K/MM3 (134-434); RBC 4.23 M/mm3 (4.00-5.60); RDW 13.2 % (11.9-15.9)
[2020-05-11 08:09] LABS: POTASSIUM 3.6 mmol/L (3.5-5.1)
[2020-05-11 08:13] LABS: ALBUMIN 3.4 g/dl (3.4-5.0); BLOOD UREA NITROGEN 13.3 mg/dL (7-18); CALCIUM 8.5 mg/dL (8.5-10.1)
[2020-05-11 08:16] LABS: CREATININE 0.8 mg/dL (0.55-1.3)
[2020-05-11 08:18] LABS: BILIRUBIN,TOTAL 0.6 mg/dL (0.2-1); TOT PROT 6.2 g/dl (6.4-8.2)
[2020-05-11] MEDS ORDERED: METHADONE HCL 10 MG TABLET PO ONE (10:00)
[2020-05-11] MEDS: FOLIC ACID 1 MG TABLET (FP) PO SCH (10:02)
[2020-05-11] MEDS: THIAMINE HCL 100 MG TABLET (FP) PO SCH (10:02)
[2020-05-11 11:47] VITALS: BP 140/81; PULSE 58; TEMP 97
[2020-05-12] MEDS ORDERED: METHADONE 10 MG, METHADONE 5 MG PO ONE (10:00)
[2020-05-13] MEDS ORDERED: METHADONE HCL 10 MG TABLET PO ONE (10:00)
[2020-05-14] MEDS ORDERED: METHADONE HCL 5 MG TABLET PO ONE (06:00)
== END 2020-05-11 15:30 | disposition left against medical advice (07) | DRG 469 ==
LOC: JER 20:48 → JERBED 05-10 00:13 → J4W 05-10 14:03
PROVIDERS: ADMIT Internal Medicine; ATTEND Nurse Practitioner Acute Care
PROC: HZ91ZZZ Pharmacotherapy for Substance Abuse Treatment, Methadone Maintenance (ICD-10-PCS; principal; 2020-05-09)
PROC: HZ2ZZZZ Detoxification Services for Substance Abuse Treatment (ICD-10-PCS; 2020-05-09)
DX: N17.9 Acute kidney failure, unspecified (principal); F19.929 Other psychoactive substance use, unspecified with intoxication, unspecified; F10.20 Alcohol dependence, uncomplicated; F13.20 Sedative, hypnotic or anxiolytic dependence, uncomplicated; M62.82 Rhabdomyolysis; G47.00 Insomnia, unspecified; F17.210 Nicotine dependence, cigarettes, uncomplicated
CPT/HCPCS: 36415; 71045-TC-FY; 76775-TC; 80053; 80307; 81003; 82550; 82553; 83735; 84100; 84484; 85025; 85610; 85730; 93005; 93010; 99285-25; C9803; J0131; J1644; U0003

== ENCOUNTER 2023-10-12 18:52 | Observation (INO) | payer OTHER ==
[2023-10-12 20:06] VITALS: BMI 24.4
[2023-10-12] MEDS ORDERED: NALOXONE HCL 0.4 MG/ML VIAL ONE ×2 (20:14→21:40)
[2023-10-12 20:15] LABS: BASO % 0.4 % (0-2.0); EOS % 2.1 % (0-4.5); HEMATOCRIT 35.5 % (35.4-49); HEMOGLOBIN 12.2 GM/dL (11.7-16.9); LYMPH % 14.4 % (8-40); MCH 27.8 pg (25.7-33.7); MCHC 34.4 g/dl (32.0-35.9); MEAN CELL VOLUME 80.8 fl (80-96); MEAN PLT VOLUME 6.5 fl (7.5-11.1); MONO % 6.7 % (3.8-10.2); NEUT % 76.4 % (42.8-82.8); PLATELET COUNT 254 10^3/uL (134-434); RDW 13.3 % (11.9-15.9); WHITE BLOOD COUNT 8.8 K/mm3 (4.0-10.0)
[2023-10-12] MEDS: NALOXONE HCL 0.4 MG/ML VIAL IVPUSH ONE ×2 (20:16→21:42)
[2023-10-12 20:35] LABS: CHLORIDE 102 mmol/L (98-107); SODIUM 139 mmol/L (136-145)
[2023-10-12 20:38] LABS: ALBUMIN 3.2 g/dl (3.4-5.0); ANION GAP 9 mmol/L (4-13); BLOOD UREA NITROGEN 16.7 mg/dL (7-18); CALCIUM 8.5 mg/dL (8.5-10.1); CO2 28 mmol/L (21-32); GLUCOSE,RANDOM 89 mg/dL (74-106)
[2023-10-12 20:41] LABS: SGPT/ALT 43 U/L (13-61)
[2023-10-12 20:43] LABS: ALK PHOS 112 U/L (45-117)
[2023-10-12 20:46] LABS: CREATININE 0.9 mg/dL (0.55-1.3); SGOT/AST 58 U/L (15-37)
[2023-10-12 20:48] LABS: BILIRUBIN,TOTAL 0.7 mg/dL (0.2-1); TOT PROT 7.1 g/dl (6.4-8.2)
[2023-10-12 22:17] VITALS: TEMP 98.7
[2023-10-13 00:09] VITALS: BP 112/79; PULSE 60; RESP 15
== END 2023-10-13 00:30 | disposition left against medical advice (07) ==
LOC: JER 18:52 → JERBED 22:28
PROVIDERS: ADMIT Student in an Organized Health Care Education/Training Program; ATTEND Student in an Organized Health Care Education/Training Program
PROC: 3E033NZ Introduction of Analgesics, Hypnotics, Sedatives into Peripheral Vein, Percutaneous Approach (ICD-10-PCS; principal; 2023-10-12)
DX: T40.2X1A Poisoning by other opioids, accidental (unintentional), initial encounter (principal); R41.82 Altered mental status, unspecified; F19.90 Other psychoactive substance use, unspecified, uncomplicated; X58.XXXA Exposure to other specified factors, initial encounter; Y99.8 Other external cause status
CPT/HCPCS: 36415; 70450-TC; 71045-TC-FY; 72125-TC; 80053; 80307; 82550; 82553; 85025; 93005; 93010; 96375; 99285-25; G0378

== ENCOUNTER 2024-01-22 22:07 | Emergency (ER) | payer OTHER ==
[2024-01-22 22:31] VITALS: BP 161/90; PULSE 56; RESP 16; TEMP 96.9; BMI 26.6
== END 2024-01-23 01:06 | disposition home or self-care (01) ==
LOC: JER 22:07
DX: F11.20 Opioid dependence, uncomplicated (principal); T40.1X1A Poisoning by heroin, accidental (unintentional), initial encounter
CPT/HCPCS: 99283-25

== ENCOUNTER 2024-07-02 02:17 | Emergency (ER) | payer OTHER ==
[2024-07-02 02:22] VITALS: BP 124/68; PULSE 78; RESP 16; TEMP 97.8; BMI 25.8
[2024-07-02] MEDS: ACETAMINOPHEN 500 MG TABLET (FP) PO ONE (03:00)
[2024-07-02] MEDS ORDERED: ACETAMINOPHEN 325 MG TABLET (FP) ONE (03:03)
== END 2024-07-02 03:28 | disposition home or self-care (01) ==
LOC: JER 02:17
DX: M54.50 Low back pain, unspecified (principal); M25.559 Pain in unspecified hip; W19.XXXA Unspecified fall, initial encounter
CPT/HCPCS: 99283-25